=== PATIENT | male | born 1975 | race Caucasian/White ===

== ENCOUNTER 2017-03-11 19:07 | Emergency (ER) | payer OTHER ==
--- NOTE | 2017-03-11 22:54 | ED CLINICAL REPORT ---
Clinical Report - Physicians/Mid Levels Formerly [facility] [address] [place] [address] 03/11/2017 19:07 [id number] Time Seen: 19:22 Mar 11 2017. Arrived- By private vehicle. Historian- patient. HISTORY OF PRESENT ILLNESS This started just prior to arrival and is still present. No loss of appetite. (Patient recently started on Geodon, recently increased medications about 2 days previously, now having spasms and contractions. No history of similar. Patient has not done any illicit drugs. Here with his girlfriend. Denies headache, denies fevers. No prior reactions to Geodon. No other new symptoms. No recent fevers or illness. No recent travel. No hemoptysis. No sick contacts.). REVIEW OF SYSTEMS No fever, sore throat, sinus drainage, abdominal pain or nausea. No skin rash or back pain. All systems otherwise negative, except as recorded above. PAST HISTORY Problems: Hepatitis [Chronic]. Pancreatitis [Chronic]. Substance Abuse. Abdominal Pain. Diarrhea. Vomiting. Dental Pain. Asthma. Back Pain. Anxiety Reaction. PTSD. Medications: Wellbutrin Oral (Tablet 100 mg) 1 tablet, daily. Geodon Oral (Capsule 80 mg), 2x a day. Gabapentin Oral 1600 mg, daily. Allergies: Geodon. Moderate (Extrapyramidal ADR: Muscle Contractions) Vicodin.(vomiting). SOCIAL HISTORY Smoker- current status unknown. No alcohol use or drug use. ADDITIONAL NOTES The nursing notes have been reviewed. PHYSICAL EXAM Vital Signs: 03/11/2017 19:15 BP: 121/91. HR: 119. RR: 20. O2 saturation: 95%. Temp: 99.8 F. Pain level now: 9/10. Appearance: (diaphoretic). ENT: Nose normal. Pharynx normal. Neck: Normal inspection. CVS: Tachycardia. Normal heart rate and rhythm. Heart sounds normal. Respiratory: No respiratory distress. Breath sounds normal. No accessory muscle use or decreased air movement. Extremities: (contractsoins/ spasms off/ on). Neuro: Oriented X 3. LABS, X-RAYS, AND EKG EKG: EKG time: (1934). No acute process. No acute ischemia. Tachycardia (121). Normal QRS complex. Normal axis. Normal ST and T waves and QT. The study has been interpreted contemporaneously. The study has been independently viewed by me. The EKG appears to be a good tracing. Laboratory Tests: CBC w Diff: (DEAN: 03/11/2017 19:17) ( [facility] [place] 03/11/2017 19:49) Final results Test Result Flag Units (Reference) WHITE BLOOD COUNT 10.8 K/uL (4.5-11.5) RED BLOOD COUNT 5.44 M/uL (4.50-5.90) HEMOGLOBIN 16.2 gm/dL (13.5-17.5) HEMATOCRIT 47.7 % (41.0-53.0) MEAN CELL VOLUME 88 fL (80-100) MEAN CORPUSCULAR HGB 30 pg (26-34) MEAN CORPUSCULAR HGB CONC 34 g/dL (31-37) RED CELL DISTRIBUTION WIDTH 12.6 % (11.6-14.8) PLATELET COUNT 207 K/uL (150-400) NEUTROPHIL % 48.8 L % (50-75) LYMPH % 41.6 H % (25-40) MONO % 7.1 % (3-14) EOSINOPHIL % 2.0 % (0-4) BASOPHIL % 0.5 % (0-2) Lactate, Serum: (DEAN: 03/11/2017 21:00) ( MsgRcvd 03/11/2017 22:04) Final results Test Result Flag Units (Reference) LACTIC ACID 1.1 mmol/L (0.4-2.0) Lactate, Serum: (DEAN: 03/11/2017 19:17) ( MsgRcvd 03/11/2017 20:00) Final results Test Result Flag Units (Reference) LACTIC ACID 11.0 H mmol/L (0.4-2.0) CRITICAL RESULTS CALLEDCalled to EMILEE CHARLES,ER 03/11/171999Were 2 patient identifiers used? YWas the result read back? Y [id number]: (DEAN: 03/11/2017 19:17) ( MsgRcvd 03/11/2017 20:13) Final results Test Result Flag Units (Reference) PROCALCITONIN <0.5 ng/mL (0-0.5) PCT Concentration: Interpretation : Risk/option for action PCT <=0.5 ng/mL : Systemic : Low risk forinfection(sepsis): progression to severeis not likely. : systemic infection.Local bacterial : CAUTION-PCT levelsinfection is : below 0.5 ng/mL do notpossible. : exclude an infection,because localizedinfections (withoutsystemic signs) may beassociated with suchlow levels. If PCT ismeasured very earlyafter a bacterialchallenge (usually <6hours), these valuesmay still be low. Inthis case PCT shouldbe re-assessed 6-24hours later. PCT >0.5 and : Systemic infection: Moderate risk for<= 2 ng/mL : (sepsis) is : progression to severepossible, but : systemic infection.other conditions : The patient should beare known to : closely monitoredelevate PCT. : both clinically andby re-assessing PCTwithin 6-24 hours. PCT > 2 ng/mL : Systemic infection: High risk for(sepsis) is likely: progression to severeunless other : systemic infection.causes are known. : PCT >= 10 ng/mL : Important systemic: High likelihood ofinflammatory : severe sepsis orresponse, almost : septic shock.exclusively due to:severe bacterial :sepsis or septic :shock. : Lipase: (DEAN: 03/11/2017 19:17) ( [facility] 03/11/2017 19:43) Final results Test Result Flag Units (Reference) LIPASE 76 U/L (73-393) CHEM 13 PANEL: (DEAN: 03/11/2017 19:17) ( AzgRcvd 03/11/2017 20:10) Final results Test Result Flag Units (Reference) GLUCOSE 100 mg/dL (70-110) BUN 11 mg/dL (7-18) CREATININE 1.8 H mg/dL (0.6-1.3) Estimated GFR 43.99 mL/min Estimated GFR- 53.31 mL/min Note: Persistent reduction over 3 months in eGFR<60 mL/min/1.73 m2 defines CKD. Patients with eGFR values>=60 mL/min/1.73 m2 may also have CKD if evidence ofpersistent proteinuria. Additional information may be foundat www.kidney.org. SODIUM 144 mmol/L (136-145) POTASSIUM 4.2 mmol/L (3.5-5.1) CHLORIDE 103 mmol/L (98-107) CARBON DIOXIDE 21 mmol/L (21-32) CALCIUM 9.9 mg/dL (8.5-10.1) TOTAL PROTEIN 9.4 H g/dL (6.4-8.2) ALBUMIN 4.9 g/dL (3.3-5.0) BILIRUBIN, TOTAL 0.7 mg/dL (0.0-1.0) ALKALINE PHOSPHATASE 110 U/L (46-116) AST (SGOT) 38 H U/L (15-37) ALT (SGPT) 52 U/L (12-78) CPK 405 H U/L (24-260) MAGNESIUM 2.0 mg/dL (1.8-2.4) CK-MB 3.1 ng/mL (0.5-3.2) %CKMB 0.8 % (0.0-4.0) TROPONIN I <0.05 ng/mL (0.00-1.5) TROPONIN REFERENCE RANGE:<0.1 NEGATIVE0.1-1.5 INDETERMINANT>1.5 POSITIVE . PROGRESS AND PROCEDURES Course of Care: Patient during exam and interview is diaphoretic, clenching down on his teeth and mya his arms, than speaking in full coherent sentences, then other episodes of such, lasting 5-15 seconds. Patient's pupils are equal and reactive at the time, no incontinence, this does not appear to be seizure. he was given total of 4 mg IV Ativan, 25 mg IV Benadryl, 2 L of fluid, his initial lactic acid was 11, with a negative for calcitonin, no leukocytosis, mild tachycardia had no other sepsis or SIRS criteria. repeat lactic acid after 2 L of fluid was normal 1.1 Patient is asleep in room discussion in regards to discontinuation use of the Geodon. AAO x 3 prior to d/c ambulatory. NO other signs/ sx. 03/11/2017 23:06 BP: 130/88. HR: 85. RR: 18. O2 saturation: 100%. Pain level now: 0/10. Patient is stable. Physical exam findings are improved. Symptoms better. Patient/family counseled. Disposition: Discharged. CLINICAL IMPRESSION Adverse drug reaction. (GEODON). Mild nontraumatic rhabdomyolysis Adverse Reaction and Medication Side effect: Extra-pyrymidal Symptoms Dehydration Acute Renal Failure. INSTRUCTIONS (STOP and DISCONTINUE GEODON). Warnings: Further evaluation is necessary. Your Current Medications: STOP TAKING THE FOLLOWING MEDICATIONS: Geodon Oral : Capsule 80 mg, 2x a day. CONTINUE TAKING THE FOLLOWING MEDICATIONS: Gabapentin Oral : 1600 mg daily. Wellbutrin Oral : Tablet 100 mg, 1 tablet daily. Prescription Medications: Ativan 1 mg: take 1 orally every 8 hours as needed for anxiety. No refill. Substitution is permissible. (#3) Benztropine mesylate 1 mg: take 1 tablet orally every 12 hours. No refill. (Dispense 3 tabs (first dose am of the 4th)) OTC Medications: Benadryl Allergy 25 mg (available over the counter): take 1 orally every 8 hours for 3 days, as needed. Dispense ten (10). No refill. Substitution is permissible. Follow-up: Follow up with your doctor in two days. (Electronically signed by Shelli Smith P.A.-C 03/12/2017 13:45)
--- NOTE | 2017-03-11 22:54 | ED CLINICAL REPORT ---
Clinical Report - Physicians/Mid Levels [facility] [address] [place] [address] 03/11/2017 19:07 [id number] Time Seen: 19:22 Mar 11 2017. Arrived- By private vehicle. Historian- patient. HISTORY OF PRESENT ILLNESS This started just prior to arrival and is still present. No loss of appetite. (Patient recently started on Geodon, recently increased medications about 2 days previously, now having spasms and contractions. No history of similar. Patient has not done any illicit drugs. Here with his girlfriend. Denies headache, denies fevers. No prior reactions to Geodon. No other new symptoms. No recent fevers or illness. No recent travel. No hemoptysis. No sick contacts.). REVIEW OF SYSTEMS No fever, sore throat, sinus drainage, abdominal pain or nausea. No skin rash or back pain. All systems otherwise negative, except as recorded above. PAST HISTORY Problems: Hepatitis [Chronic]. Pancreatitis [Chronic]. Substance Abuse. Abdominal Pain. Diarrhea. Vomiting. Dental Pain. Asthma. Back Pain. Anxiety Reaction. PTSD. Medications: Wellbutrin Oral (Tablet 100 mg) 1 tablet, daily. Geodon Oral (Capsule 80 mg), 2x a day. Gabapentin Oral 1600 mg, daily. Allergies: Geodon. Moderate (Extrapyramidal ADR: Muscle Contractions) Vicodin.(vomiting). SOCIAL HISTORY Smoker- current status unknown. No alcohol use or drug use. ADDITIONAL NOTES The nursing notes have been reviewed. PHYSICAL EXAM Vital Signs: 03/11/2017 19:15 BP: 121/91. HR: 119. RR: 20. O2 saturation: 95%. Temp: 99.8 F. Pain level now: 9/10. Appearance: (diaphoretic). ENT: Nose normal. Pharynx normal. Neck: Normal inspection. CVS: Tachycardia. Normal heart rate and rhythm. Heart sounds normal. Respiratory: No respiratory distress. Breath sounds normal. No accessory muscle use or decreased air movement. Extremities: (contractsoins/ spasms off/ on). Neuro: Oriented X 3. LABS, X-RAYS, AND EKG EKG: EKG time: (1934). No acute process. No acute ischemia. Tachycardia (121). Normal QRS complex. Normal axis. Normal ST and T waves and QT. The study has been interpreted contemporaneously. The study has been independently viewed by me. The EKG appears to be a good tracing. Laboratory Tests: CBC w Diff: (DEAN: 03/11/2017 19:17) ( [facility] [place] 03/11/2017 19:49) Final results Test Result Flag Units (Reference) WHITE BLOOD COUNT 10.8 K/uL (4.5-11.5) RED BLOOD COUNT 5.44 M/uL (4.50-5.90) HEMOGLOBIN 16.2 gm/dL (13.5-17.5) HEMATOCRIT 47.7 % (41.0-53.0) MEAN CELL VOLUME 88 fL (80-100) MEAN CORPUSCULAR HGB 30 pg (26-34) MEAN CORPUSCULAR HGB CONC 34 g/dL (31-37) RED CELL DISTRIBUTION WIDTH 12.6 % (11.6-14.8) PLATELET COUNT 207 K/uL (150-400) NEUTROPHIL % 48.8 L % (50-75) LYMPH % 41.6 H % (25-40) MONO % 7.1 % (3-14) EOSINOPHIL % 2.0 % (0-4) BASOPHIL % 0.5 % (0-2) Lactate, Serum: (DEAN: 03/11/2017 21:00) ( MsgRcvd 03/11/2017 22:04) Final results Test Result Flag Units (Reference) LACTIC ACID 1.1 mmol/L (0.4-2.0) Lactate, Serum: (DEAN: 03/11/2017 19:17) ( MsgRcvd 03/11/2017 20:00) Final results Test Result Flag Units (Reference) LACTIC ACID 11.0 H mmol/L (0.4-2.0) CRITICAL RESULTS CALLEDCalled to EMILEE CHARLES,ER 03/11/171999Were 2 patient identifiers used? YWas the result read back? Y [id number]: (DEAN: 03/11/2017 19:17) ( MsgRcvd 03/11/2017 20:13) Final results Test Result Flag Units (Reference) PROCALCITONIN <0.5 ng/mL (0-0.5) PCT Concentration: Interpretation : Risk/option for action PCT <=0.5 ng/mL : Systemic : Low risk forinfection(sepsis): progression to severeis not likely. : systemic infection.Local bacterial : CAUTION-PCT levelsinfection is : below 0.5 ng/mL do notpossible. : exclude an infection,because localizedinfections (withoutsystemic signs) may beassociated with suchlow levels. If PCT ismeasured very earlyafter a bacterialchallenge (usually <6hours), these valuesmay still be low. Inthis case PCT shouldbe re-assessed 6-24hours later. PCT >0.5 and : Systemic infection: Moderate risk for<= 2 ng/mL : (sepsis) is : progression to severepossible, but : systemic infection.other conditions : The patient should beare known to : closely monitoredelevate PCT. : both clinically andby re-assessing PCTwithin 6-24 hours. PCT > 2 ng/mL : Systemic infection: High risk for(sepsis) is likely: progression to severeunless other : systemic infection.causes are known. : PCT >= 10 ng/mL : Important systemic: High likelihood ofinflammatory : severe sepsis orresponse, almost : septic shock.exclusively due to:severe bacterial :sepsis or septic :shock. : Lipase: (DEAN: 03/11/2017 19:17) ( [facility] 03/11/2017 19:43) Final results Test Result Flag Units (Reference) LIPASE 76 U/L (73-393) CHEM 13 PANEL: (DEAN: 03/11/2017 19:17) ( MngRcvd 03/11/2017 20:10) Final results Test Result Flag Units (Reference) GLUCOSE 100 mg/dL (70-110) BUN 11 mg/dL (7-18) CREATININE 1.8 H mg/dL (0.6-1.3) Estimated GFR 43.99 mL/min Estimated GFR- 53.31 mL/min Note: Persistent reduction over 3 months in eGFR<60 mL/min/1.73 m2 defines CKD. Patients with eGFR values>=60 mL/min/1.73 m2 may also have CKD if evidence ofpersistent proteinuria. Additional information may be foundat www.kidney.org. SODIUM 144 mmol/L (136-145) POTASSIUM 4.2 mmol/L (3.5-5.1) CHLORIDE 103 mmol/L (98-107) CARBON DIOXIDE 21 mmol/L (21-32) CALCIUM 9.9 mg/dL (8.5-10.1) TOTAL PROTEIN 9.4 H g/dL (6.4-8.2) ALBUMIN 4.9 g/dL (3.3-5.0) BILIRUBIN, TOTAL 0.7 mg/dL (0.0-1.0) ALKALINE PHOSPHATASE 110 U/L (46-116) AST (SGOT) 38 H U/L (15-37) ALT (SGPT) 52 U/L (12-78) CPK 405 H U/L (24-260) MAGNESIUM 2.0 mg/dL (1.8-2.4) CK-MB 3.1 ng/mL (0.5-3.2) %CKMB 0.8 % (0.0-4.0) TROPONIN I <0.05 ng/mL (0.00-1.5) TROPONIN REFERENCE RANGE:<0.1 NEGATIVE0.1-1.5 INDETERMINANT>1.5 POSITIVE . PROGRESS AND PROCEDURES Course of Care: Patient during exam and interview is diaphoretic, clenching down on his teeth and mya his arms, than speaking in full coherent sentences, then other episodes of such, lasting 5-15 seconds. Patient's pupils are equal and reactive at the time, no incontinence, this does not appear to be seizure. he was given total of 4 mg IV Ativan, 25 mg IV Benadryl, 2 L of fluid, his initial lactic acid was 11, with a negative for calcitonin, no leukocytosis, mild tachycardia had no other sepsis or SIRS criteria. repeat lactic acid after 2 L of fluid was normal 1.1 Patient is asleep in room discussion in regards to discontinuation use of the Geodon. AAO x 3 prior to d/c ambulatory. NO other signs/ sx. 03/11/2017 23:06 BP: 130/88. HR: 85. RR: 18. O2 saturation: 100%. Pain level now: 0/10. Patient is stable. Physical exam findings are improved. Symptoms better. Patient/family counseled. Disposition: Discharged. CLINICAL IMPRESSION Adverse drug reaction. (GEODON). Mild nontraumatic rhabdomyolysis Adverse Reaction and Medication Side effect: Extra-pyrymidal Symptoms Dehydration Acute Renal Failure. INSTRUCTIONS (STOP and DISCONTINUE GEODON). Warnings: Further evaluation is necessary. Your Current Medications: STOP TAKING THE FOLLOWING MEDICATIONS: Geodon Oral : Capsule 80 mg, 2x a day. CONTINUE TAKING THE FOLLOWING MEDICATIONS: Gabapentin Oral : 1600 mg daily. Wellbutrin Oral : Tablet 100 mg, 1 tablet daily. Prescription Medications: Ativan 1 mg: take 1 orally every 8 hours as needed for anxiety. No refill. Substitution is permissible. (#3) Benztropine mesylate 1 mg: take 1 tablet orally every 12 hours. No refill. (Dispense 3 tabs (first dose am of the 4th)) OTC Medications: Benadryl Allergy 25 mg (available over the counter): take 1 orally every 8 hours for 3 days, as needed. Dispense ten (10). No refill. Substitution is permissible. Follow-up: Follow up with your doctor in two days. (Electronically signed by Shelli Smith P.A.-C 03/12/2017 13:45)
--- NOTE | 2017-03-11 22:55 | ED NURSING NOTES ---
Clinical Report - Nurses [facility] [address] [place] [address] 03/11/2017 19:07 Patient: DORETHA LAKE TRIAGE Triage time 19:16. Chief Complaint: NECK PAIN (body tremors muscle mya, sweating A&Ox4). --19:23 Giovana Mary R.N. 19:15 03/11/17. BP: 121/91 taken on the left arm, while lying. HR: 119 (regular and tachycardic). RR: 20 (regular, unlabored and normal). O2 saturation: 95% on room air. Temp: 99.8 F (oral). Pain level now: 07/19. --19:23 Giovnaa Mary R.N. Weight: 90.7 kg stated. Height/Length: 75 inches Per Patient. BMI: 25. --19:23 Giovana Mary R.N. Medications Gabapentin Oral 1600 mg, daily. --19:20 Giovana Mary R.N. Geodon Oral (Capsule 80 mg), 2x a day. --19:20 Giovnaa Mary R.N. Wellbutrin Oral (Tablet 100 mg) 1 tablet, daily. --19:21 Giovana Mary R.N. Allergies Vicodin.(vomiting) --19:19 Giovana Mary R.N. History Arrived by private vehicle. Historian: patient. Accompanied by (girlfriend). Primary physician (elizabeth peacock). This is a new problem. Symptoms still present (started at 1600 today). PAST MEDICAL HX: Immunizations: up-to-date. SOCIAL HX: Light tobacco smoker (cigarette)- less than 1/2 a pack per day. No alcohol use or drug use. SELF HARM ASSESSMENT: A self harm assessment was performed. The patient answered "no" to the question "Have you recently felt down, depressed, or hopeless?", "Have you noticed less interest or pleasure in doing things?", "Do you have thoughts of harming or killing yourself?", "Are you here because you tried to hurt yourself?", "Have you ever tried to hurt yourself before today?", "Have you recently had thoughts about harming or killing others?" and "Do you have any dangerous items in your possession?". --19:23 Giovana Mary R.N. PROBLEMS: Hepatitis [Chronic]. Pancreatitis [Chronic]. --19:21 Giovana Mary R.N. Substance Abuse. Abdominal Pain. Diarrhea. Vomiting. Dental Pain. Asthma. Back Pain. Anxiety Reaction. PTSD. --19:21 Giovana Mary R.N. ADDITIONAL SURGERIES: Eye surgery. Hand surgery. --19:21 Giovana Mary R.N. Interventions ID band on patient. --:23 Giovana Mary R.N. PHYSICAL ASSESSMENT To room via wheelchair. GENERAL / NEURO / PSYCH: Alert. Oriented X 4. Appears in no acute distress. HEENT: Pupils equal, round and reactive to light. RESPIRATORY: Respirations not labored. CVS: Normal sinus rhythm noted. Capillary refill less than 2 seconds. SKIN: Skin is warm and dry. --19:25 Giovana Mary R.N. NURSING PROGRESS NOTES 19:03/11/2017 Site #1 started via IV in the left forearm with an 20g angiocath, with aseptic technique and good blood return; one attempt. Blood drawn: rainbow set. Labeled in the presence of the patient and sent to the lab. Saline lock flushed with 10 mL saline. --19:24 Nelson Teague R.N. :03/11/2017 Ativan (LORazepam) IVP 2 mg given over 2 minute(s) via site #1. Allergies verified, confirmed 5 rights and sedative warning given to the patient. IV patency established. IV site checked: no pain, redness, or swelling. IV flushed thoroughly pre- and post-medication administration. IVP given by RN. --19:24 Nelson Teague R.N. Monitoring of patient in place. Finger stick glucose: 90; performed by tech. Patient gowned. Reassurance given. Two patient identifiers checked. Call light placed in reach. Side rails up x 2. Bed placed in lowest position. Brakes of bed on. --19:25 Giovana Mary R.N. Patient ready for evaluation- chart flagged. --19:25 Giovana Mary R.N. 19:31 03/11/2017 Started bag #1 1000 mL IV Fluids IV NS (Saline); bolus of 1000 mL wide open via site #1. Allergies verified and confirmed 5 rights. IV patency established. IV site checked: no pain, redness, or swelling. IV flushed thoroughly pre- and post-medication administration. --19:31 Giovana Mary R.N. 19:38 03/11/2017 Ativan (LORazepam) IVP 2 mg given over 2 minute(s) via site #1. Allergies verified, confirmed 5 rights and sedative warning given to the patient. IV patency established. IV site checked: no pain, redness, or swelling. IV flushed thoroughly pre- and post-medication administration. IVP given by RN. --19:39 Giovana Mary R.N. 19:37 03/11/17. BP: 134/75 taken on the left arm, while lying. HR: 113 (regular and tachycardic). RR: 18. O2 saturation: 96% on room air. Temp: deferred. Pain level now: 07/19. --19:42 Giovana Mary R.N. Reassurance given to the patient and patient's family. --19:42 Giovana Mary R.N. ( pt A&Ox4, continue to have muscle contractions, pt states thinks he has [place] syndrome, continues to talk through spasms,). --19:43 Giovana Mary R.N. EKG time: (1935 PM). EKG was ordered, performed by a tech and shown to the PA. --19:56 Jo Pizarro ( Critical lactate value received from lab and reported to Mook PEARL (ER Provider)). --20:02 Greg Moseley R.N. 20:10 03/11/2017 Benztropine IVP 1 mg given over 2 minute(s) via site #1. Allergies verified, confirmed 5 rights and sedative warning given to the patient. IV patency established. IV site checked: no pain, redness, or swelling. IV flushed thoroughly pre- and post-medication administration. IVP given by RN. --20:15 Greg Moseley R.N. 20:12 03/11/2017 Benadryl (DiphenhydrAMINE HCl) IVP 50 mg given over 2 minute(s) via site #1. Allergies verified, confirmed 5 rights and sedative warning given to the patient. IV patency established. IV site checked: no pain, redness, or swelling. IV flushed thoroughly pre- and post-medication administration. IVP given by RN. --20:14 Greg Moseley R.N. 20:15 03/11/2017 Started bag #1 1000 mL IV Fluids IV NS (Saline); at 1000 mL/hr over 1 hour(s) via site #1. Allergies verified and confirmed 5 rights. IV patency established. IV site checked: no pain, redness, or swelling. IV flushed thoroughly pre- and post-medication administration. Completed per protocol. --20:15 Greg Moseley R.N. 20:15 03/11/17. BP: 142/99 taken on the left arm, while lying. HR: 99 (regular and normal rate). RR: 18. O2 saturation: 93% on room air. Temp: deferred. Pain level now: 5/10. --20:16 Giovana Mary R.N. Two patient identifiers checked. Call light placed in reach. Side rails up x 2. Bed placed in lowest position. Brakes of bed on. --20:16 Giovana Mary R.N. 20:15 03/11/2017 IV Fluids IV NS Discontinued: completed. Total amount infused: 1000 mL. IV patency established. IV site checked: no pain, redness, or swelling. IV flushed thoroughly. --20:49 Greg Moseley R.N. 20:23 03/11/2017 Toradol IVP 30 mg given over 2 minute(s) via site #1. Allergies verified and confirmed 5 rights. IV patency established. IV site checked: no pain, redness, or swelling. IV flushed thoroughly pre- and post-medication administration. IVP given by RN. --20:23 Giovana Mary R.N. 20:49 03/11/2017 IV Fluids IV NS Discontinued: completed. Total amount infused: 1000 mL. IV patency established. IV site checked: no pain, redness, or swelling. IV flushed thoroughly. --20:49 Greg Mosleey R.N. Patient ID band checked for patient name and birthdate: patient confirmed. Instructions provided to collect clean catch urine and patient verbalized understanding. Clean catch urine collected with return of yellow-colored clear urine; sample sent to lab for urinalysis and drug screen. Specimen labeled in the presence of the patient. --22:27 Giovana Mary R.N. Two patient identifiers checked. Call light placed in reach. Side rails up x 2. Bed placed in lowest position. Brakes of bed on. --22:27 Giovana Mary R.N. Reassessment after fluids administered. He reports no complaints. Overall patient status is improved- he states feels better. RESPIRATORY: No respiratory distress. Breath sounds normal. SKIN: Skin is warm and dry. Skin color within normal limits. --22:27 Giovana Mary R.N. DISPOSITION / DISCHARGE 23:10 03/11/2017 Site #1 removed upon discharge. Catheter intact. Manual pressure and bandage applied. --23:10 Giovana Mary R.N. Condition at departure: improved and stable. No learning barriers present. Discharge instructions provided and reviewed with cook supervisor and the patient. Reviewed medication(s) side effects, precautions, dosing and course information. Prescription(s) given to the cook supervisor. Patient and cook supervisor verbalized understanding. Written instructions provided in Cook Islander. The patient was discharged home and accompanied by cook supervisor and girlfriend. He left the Emergency Department ambulatory and via private vehicle. Family member driving. --23:13 Giovana Mary R.N. 23:06 03/11/17. BP: 130/88 taken on the left arm, while sitting. HR: 85 (regular and normal rate). RR: 18 (regular and labored). O2 saturation: 100% on room air. Temp: deferred. Pain level now: 0/10. --23:13 Giovana Mary R.N. Departure time: 2310. --23:13 Giovana Mary R.N. Locked/Released at 03/11/2017 23:14 by Giovana Mary R.N.
--- NOTE | 2017-03-11 22:55 | ED ORDER SUMMARY ---
..... Patient: DORETHA LAKE OrderSheet [facility] VisitID: [id number] [place] [address] 41y, M Registration Date/Time: 03/11/2017 ORDER SHEET Weight: 90.7 kg (stated) Allergies: Vicodin, Geodon GENERAL ORDERS: Cask Maker (Continuous) (19:21 03/11/2017 EKoroleva P.A.-C) (Ack 19:25 CHagerty ER Ethologist) (19:25 CBradburn R.N.) Cardiac Panel Stat (19:21 03/11/2017 EKoroleva P.A.-C) (Ack 19:25 CHagerty ER Ethologist) (19:25 CBradburn R.N.) EKG - ER Stat (19:21 03/11/2017 EKoroleva P.A.-C) (Ack 19:25 CHagerty ER Ethologist) (19:40 CBradburn R.N.) Urine Drug Screen Urgent (19:23 03/11/2017 EKoroleva P.A.-C) (Ack 19:25 CHagerty ER Ethologist) (22:26 CBradburn R.N.) Lipase Urgent (19:23 03/11/2017 EKoroleva P.A.-C) (Ack 19:25 CHagerty ER Ethologist) (19:26 CBradburn R.N.) PCT (Procalcitonin) Urgent (19:36 03/11/2017 EKoroleva P.A.-C) (19:37 CHagerty ER Ethologist) Lactate, Serum Urgent (19:36 03/11/2017 EKoroleva P.A.-C) (Ack 19:37 CHagerty ER Ethologist) (19:57 DDavis R.N.) - (benztropine 1 mg iv) (19:52 03/11/2017 EKoroleva P.A.-C) (Cancelled: Other20:04 EKoroleva P.A.-C) Lactate, Serum Urgent (20:01 03/11/2017 EKoroleva P.A.-C) (Ack 20:03 CHagerty ER Ethologist) (21:13 CHagerty ER Ethologist) MEDICATION ORDERS: - (benztropine 1 mg iv) (20:04 03/11/2017 EKoroleva P.A.-C) (20:15 DDavis R.N.) IV FLUIDS: IV NS : initial bolus 1000 mL (1000 mL/hr), then 1000 mL/hr for X1 (NOW); Jordan (19:20 03/11/2017 EKoroleva P.A.-C) (Ack 19:26 DIONNAradburn R.N.) (19:31 CBradburn R.N.) Ativan IV 2 mg (HIGH ALERT MEDICATION, NOW) (19:21 03/11/2017 EKoroleva P.A.-C) (19:24 Toña R.N.) Ativan IV 2 mg (HIGH ALERT MEDICATION, NOW) (19:36 03/11/2017 EKoroleva P.A.-C) (19:39 CBradburn R.N.) Benadryl IV 50 mg (NOW) (19:51 03/11/2017 EKoroleva P.A.-C) (20:14 DDavis R.N.) Toradol IV 30 mg (NOW) (20:04 03/11/2017 EKoroleva P.A.-C) (Ack 20:21 CBradburn R.N.) (20:23 CBradburn R.N.) ORDER SHEET NOTES: [Electronically signed by Giovana Mary R.N. (23:14 03/11/2017)] [Electronically signed by Shelli Smith P.A.-C (13:45 03/12/2017)] [Electronically locked/signed by Giovana Mary R.N. (23:14 03/11/2017)]
--- NOTE | 2017-03-11 22:55 | ED NURSING NOTES ---
Clinical Report - Nurses [place] [place] [address] 03/11/2017 19:07 Patient: DORETHA LAKE TRIAGE Triage time 19:16. Chief Complaint: NECK PAIN (body tremors muscle mya, sweating A&Ox4). --19:23 Giovana Mary R.N. 19:15 03/11/17. BP: 121/91 taken on the left arm, while lying. HR: 119 (regular and tachycardic). RR: 20 (regular, unlabored and normal). O2 saturation: 95% on room air. Temp: 99.8 F (oral). Pain level now: 07/19. --19:23 Giovana Mary R.N. Weight: 90.7 kg stated. Height/Length: 75 inches Per Patient. BMI: 25. --19:23 Giovana Mary R.N. Medications Gabapentin Oral 1600 mg, daily. --19:20 Giovana Mary R.N. Geodon Oral (Capsule 80 mg), 2x a day. --19:20 Giovana Mary R.N. Wellbutrin Oral (Tablet 100 mg) 1 tablet, daily. --19:21 Giovana Mary R.N. Allergies Vicodin.(vomiting) --19:19 Giovana Mary R.N. History Arrived by private vehicle. Historian: patient. Accompanied by (girlfriend). Primary physician (elizabeth peacock). This is a new problem. Symptoms still present (started at 1600 today). PAST MEDICAL HX: Immunizations: up-to-date. SOCIAL HX: Light tobacco smoker (cigarette)- less than 1/2 a pack per day. No alcohol use or drug use. SELF HARM ASSESSMENT: A self harm assessment was performed. The patient answered "no" to the question "Have you recently felt down, depressed, or hopeless?", "Have you noticed less interest or pleasure in doing things?", "Do you have thoughts of harming or killing yourself?", "Are you here because you tried to hurt yourself?", "Have you ever tried to hurt yourself before today?", "Have you recently had thoughts about harming or killing others?" and "Do you have any dangerous items in your possession?". --19:23 Giovana Mary R.N. PROBLEMS: Hepatitis [Chronic]. Pancreatitis [Chronic]. --19:21 Giovana Mary R.N. Substance Abuse. Abdominal Pain. Diarrhea. Vomiting. Dental Pain. Asthma. Back Pain. Anxiety Reaction. PTSD. --19:21 Giovana Mary R.N. ADDITIONAL SURGERIES: Eye surgery. Hand surgery. --19:21 Giovana Mary R.N. Interventions ID band on patient. --:23 Giovana Mary R.N. PHYSICAL ASSESSMENT To room via wheelchair. GENERAL / NEURO / PSYCH: Alert. Oriented X 4. Appears in no acute distress. HEENT: Pupils equal, round and reactive to light. RESPIRATORY: Respirations not labored. CVS: Normal sinus rhythm noted. Capillary refill less than 2 seconds. SKIN: Skin is warm and dry. --19:25 Giovana Mary R.N. NURSING PROGRESS NOTES 19:03/11/2017 Site #1 started via IV in the left forearm with an 20g angiocath, with aseptic technique and good blood return; one attempt. Blood drawn: rainbow set. Labeled in the presence of the patient and sent to the lab. Saline lock flushed with 10 mL saline. --19:24 Nelson Teague R.N. :03/11/2017 Ativan (LORazepam) IVP 2 mg given over 2 minute(s) via site #1. Allergies verified, confirmed 5 rights and sedative warning given to the patient. IV patency established. IV site checked: no pain, redness, or swelling. IV flushed thoroughly pre- and post-medication administration. IVP given by RN. --19:24 Nelson Teague R.N. Monitoring of patient in place. Finger stick glucose: 90; performed by tech. Patient gowned. Reassurance given. Two patient identifiers checked. Call light placed in reach. Side rails up x 2. Bed placed in lowest position. Brakes of bed on. --19:25 Giovana Mary R.N. Patient ready for evaluation- chart flagged. --19:25 Giovana Mary R.N. 19:31 03/11/2017 Started bag #1 1000 mL IV Fluids IV NS (Saline); bolus of 1000 mL wide open via site #1. Allergies verified and confirmed 5 rights. IV patency established. IV site checked: no pain, redness, or swelling. IV flushed thoroughly pre- and post-medication administration. --19:31 Giovana Mary R.N. 19:38 03/11/2017 Ativan (LORazepam) IVP 2 mg given over 2 minute(s) via site #1. Allergies verified, confirmed 5 rights and sedative warning given to the patient. IV patency established. IV site checked: no pain, redness, or swelling. IV flushed thoroughly pre- and post-medication administration. IVP given by RN. --19:39 Giovana Mary R.N. 19:37 03/11/17. BP: 134/75 taken on the left arm, while lying. HR: 113 (regular and tachycardic). RR: 18. O2 saturation: 96% on room air. Temp: deferred. Pain level now: 07/19. --19:42 Giovana Mary R.N. Reassurance given to the patient and patient's family. --19:42 Giovana Mary R.N. ( pt A&Ox4, continue to have muscle contractions, pt states thinks he has [place] syndrome, continues to talk through spasms,). --19:43 Giovana Mary R.N. EKG time: (1935 PM). EKG was ordered, performed by a tech and shown to the PA. --19:56 Jo Pizarro ( Critical lactate value received from lab and reported to Mook PEARL (ER Provider)). --20:02 Greg Moseley R.N. 20:10 03/11/2017 Benztropine IVP 1 mg given over 2 minute(s) via site #1. Allergies verified, confirmed 5 rights and sedative warning given to the patient. IV patency established. IV site checked: no pain, redness, or swelling. IV flushed thoroughly pre- and post-medication administration. IVP given by RN. --20:15 Greg Moseley R.N. 20:12 03/11/2017 Benadryl (DiphenhydrAMINE HCl) IVP 50 mg given over 2 minute(s) via site #1. Allergies verified, confirmed 5 rights and sedative warning given to the patient. IV patency established. IV site checked: no pain, redness, or swelling. IV flushed thoroughly pre- and post-medication administration. IVP given by RN. --20:14 Greg Moseley R.N. 20:15 03/11/2017 Started bag #1 1000 mL IV Fluids IV NS (Saline); at 1000 mL/hr over 1 hour(s) via site #1. Allergies verified and confirmed 5 rights. IV patency established. IV site checked: no pain, redness, or swelling. IV flushed thoroughly pre- and post-medication administration. Completed per protocol. --20:15 Greg Moseley R.N. 20:15 03/11/17. BP: 142/99 taken on the left arm, while lying. HR: 99 (regular and normal rate). RR: 18. O2 saturation: 93% on room air. Temp: deferred. Pain level now: 5/10. --20:16 Giovana Mary R.N. Two patient identifiers checked. Call light placed in reach. Side rails up x 2. Bed placed in lowest position. Brakes of bed on. --20:16 Giovana Mary R.N. 20:15 03/11/2017 IV Fluids IV NS Discontinued: completed. Total amount infused: 1000 mL. IV patency established. IV site checked: no pain, redness, or swelling. IV flushed thoroughly. --20:49 Greg Moseley R.N. 20:23 03/11/2017 Toradol IVP 30 mg given over 2 minute(s) via site #1. Allergies verified and confirmed 5 rights. IV patency established. IV site checked: no pain, redness, or swelling. IV flushed thoroughly pre- and post-medication administration. IVP given by RN. --20:23 Giovana Mary R.N. 20:49 03/11/2017 IV Fluids IV NS Discontinued: completed. Total amount infused: 1000 mL. IV patency established. IV site checked: no pain, redness, or swelling. IV flushed thoroughly. --20:49 Greg Moseley R.N. Patient ID band checked for patient name and birthdate: patient confirmed. Instructions provided to collect clean catch urine and patient verbalized understanding. Clean catch urine collected with return of yellow-colored clear urine; sample sent to lab for urinalysis and drug screen. Specimen labeled in the presence of the patient. --22:27 Giovana Mary R.N. Two patient identifiers checked. Call light placed in reach. Side rails up x 2. Bed placed in lowest position. Brakes of bed on. --22:27 Giovana Mary R.N. Reassessment after fluids administered. He reports no complaints. Overall patient status is improved- he states feels better. RESPIRATORY: No respiratory distress. Breath sounds normal. SKIN: Skin is warm and dry. Skin color within normal limits. --22:27 Giovana Mary R.N. DISPOSITION / DISCHARGE 23:10 03/11/2017 Site #1 removed upon discharge. Catheter intact. Manual pressure and bandage applied. --23:10 Giovana Mary R.N. Condition at departure: improved and stable. No learning barriers present. Discharge instructions provided and reviewed with diabetes clinical manager and the patient. Reviewed medication(s) side effects, precautions, dosing and course information. Prescription(s) given to the diabetes clinical manager. Patient and diabetes clinical manager verbalized understanding. Written instructions provided in Indonesian. The patient was discharged home and accompanied by diabetes clinical manager and girlfriend. He left the Emergency Department ambulatory and via private vehicle. Family member driving. --23:13 Giovana Mary R.N. 23:06 03/11/17. BP: 130/88 taken on the left arm, while sitting. HR: 85 (regular and normal rate). RR: 18 (regular and labored). O2 saturation: 100% on room air. Temp: deferred. Pain level now: 0/10. --23:13 Giovana Mary R.N. Departure time: 2310. --23:13 Giovana Mary R.N. Locked/Released at 03/11/2017 23:14 by Giovana Mary R.N.
--- NOTE | 2017-03-11 22:55 | ED ORDER SUMMARY ---
..... Patient: DORETHA LAKE OrderSheet [facility] VisitID: [id number] [place] [address] 41y, M Registration Date/Time: 03/11/2017 ORDER SHEET Weight: 90.7 kg (stated) Allergies: Vicodin, Geodon GENERAL ORDERS: Livestock [employer] Hand (Continuous) (19:21 03/11/2017 EKoroleva P.A.-C) (Ack 19:25 CHagerty ER Conference Services Director) (19:25 CBradburn R.N.) Cardiac Panel Stat (19:21 03/11/2017 EKoroleva P.A.-C) (Ack 19:25 CHagerty ER Conference Services Director) (19:25 CBradburn R.N.) EKG - ER Stat (19:21 03/11/2017 EKoroleva P.A.-C) (Ack 19:25 CHagerty ER Conference Services Director) (19:40 CBradburn R.N.) Urine Drug Screen Urgent (19:23 03/11/2017 EKoroleva P.A.-C) (Ack 19:25 CHagerty ER Conference Services Director) (22:26 CBradburn R.N.) Lipase Urgent (19:23 03/11/2017 EKoroleva P.A.-C) (Ack 19:25 CHagerty ER Conference Services Director) (19:26 CBradburn R.N.) PCT (Procalcitonin) Urgent (19:36 03/11/2017 EKoroleva P.A.-C) (19:37 CHagerty ER Conference Services Director) Lactate, Serum Urgent (19:36 03/11/2017 EKoroleva P.A.-C) (Ack 19:37 CHagerty ER Conference Services Director) (19:57 DDavis R.N.) - (benztropine 1 mg iv) (19:52 03/11/2017 EKoroleva P.A.-C) (Cancelled: Other20:04 EKoroleva P.A.-C) Lactate, Serum Urgent (20:01 03/11/2017 EKoroleva P.A.-C) (Ack 20:03 CHagerty ER Conference Services Director) (21:13 CHagerty ER Conference Services Director) MEDICATION ORDERS: - (benztropine 1 mg iv) (20:04 03/11/2017 EKoroleva P.A.-C) (20:15 DDavis R.N.) IV FLUIDS: IV NS : initial bolus 1000 mL (1000 mL/hr), then 1000 mL/hr for X1 (NOW); Jordan (19:20 03/11/2017 EKoroleva P.A.-C) (Ack 19:26 DIONNAradburn R.N.) (19:31 CBradburn R.N.) Ativan IV 2 mg (HIGH ALERT MEDICATION, NOW) (19:21 03/11/2017 EKoroleva P.A.-C) (19:24 Toña R.N.) Ativan IV 2 mg (HIGH ALERT MEDICATION, NOW) (19:36 03/11/2017 EKoroleva P.A.-C) (19:39 CBradburn R.N.) Benadryl IV 50 mg (NOW) (19:51 03/11/2017 EKoroleva P.A.-C) (20:14 DDavis R.N.) Toradol IV 30 mg (NOW) (20:04 03/11/2017 EKoroleva P.A.-C) (Ack 20:21 CBradburn R.N.) (20:23 CBradburn R.N.) ORDER SHEET NOTES: [Electronically signed by Giovana Mary R.N. (23:14 03/11/2017)] [Electronically signed by Shelli Smith P.A.-C (13:45 03/12/2017)] [Electronically locked/signed by Giovana Mary R.N. (23:14 03/11/2017)]
--- NOTE | 2017-03-12 13:46 | ED MAR SUMMARY ---
..... Medication Administration Record [facility] [address] [place] [address] Patient: DORETHA LAKE Visit ID: [id number] 41y, M Weight: 90.7 kg Height/Length: 75 in BMI: 25 ALLERGIES: Vicodin, Geodon Given 19:22 03/11/2017 Nelson Teague R.N. Medication Administered: ATIVAN [IVP] (LORAZEPAM), Dose: 2 mg IVP over 2 minute(s), Site: #1 left forearm. Medication Ordered: Ativan IV 2 mg (HIGH ALERT MEDICATION, NOW). Start 19:31 03/11/2017 Giovana Mary R.N., Stop 20:15 03/11/2017 Greg Moseley R.N. Medication Administered: IV NS (SALINE), Dose: IV Fluids, Bolus: 1000 mL wide open, Dispensed: 1000 mL bag, Site: #1 left forearm. Medication Ordered: IV NS : initial bolus 1000 mL (1000 mL/hr), then 1000 mL/hr for X1 (NOW); Jordan. Given 19:38 03/11/2017 Giovana Mary R.N. Medication Administered: ATIVAN [IVP] (LORAZEPAM), Dose: 2 mg IVP over 2 minute(s), Site: #1 left forearm. Medication Ordered: Ativan IV 2 mg (HIGH ALERT MEDICATION, NOW). Given 20:10 03/11/2017 Greg Moseley R.N. Medication Administered: BENZTROPINE [IVP], Dose: 1 mg IVP over 2 minute(s), Site: #1 left forearm. Medication Ordered: - (benztropine 1 mg iv). Given 20:12 03/11/2017 Greg Moseley R.N. Medication Administered: BENADRYL [IVP] (DIPHENHYDRAMINE HCL), Dose: 50 mg IVP over 2 minute(s), Site: #1 left forearm. Medication Ordered: Benadryl IV 50 mg (NOW). Start 20:15 03/11/2017 Greg Moseley R.N., Stop 20:49 03/11/2017 Greg Moseley R.N. Medication Administered: IV NS (SALINE), Dose: IV Fluids over 1 hour(s), Rate: 1000 mL/hr, Dispensed: 1000 mL bag, Site: #1 left forearm. Medication Ordered: IV NS : initial bolus 1000 mL (1000 mL/hr), then 1000 mL/hr for X1 (NOW); Jordan. Given 20:23 03/11/2017 Giovana Mary R.N. Medication Administered: TORADOL [IVP], Dose: 30 mg IVP over 2 minute(s), Site: #1 left forearm. Medication Ordered: Toradol IV 30 mg (NOW).
--- NOTE | 2017-03-12 13:46 | ED DISCHARGE INSTRUCTIONS ---
Patient: DORETHA LAKE General Instructions [facility] VisitID: [id number] [place] [address] 41y, M Registration Date/Time: 03/11/2017 Adverse drug reaction. (GEODON). Mild nontraumatic rhabdomyolysis Adverse Reaction and Medication Side effect: Extra-pyrymidal Symptoms Dehydration Acute Renal Failure. INSTRUCTIONS (STOP and DISCONTINUE GEODON). Warnings: Further evaluation is necessary. Your Current Medications: STOP TAKING THE FOLLOWING MEDICATIONS: Geodon Oral : Capsule 80 mg, 2x a day. CONTINUE TAKING THE FOLLOWING MEDICATIONS: Gabapentin Oral : 1600 mg daily. Wellbutrin Oral : Tablet 100 mg, 1 tablet daily. Prescription Medications: Ativan 1 mg: take 1 orally every 8 hours as needed for anxiety. No refill. Substitution is permissible. (#3) Benztropine mesylate 1 mg: take 1 tablet orally every 12 hours. No refill. (Dispense 3 tabs (first dose am of the 4th)) OTC Medications: Benadryl Allergy 25 mg (available over the counter): take 1 orally every 8 hours for 3 days, as needed. Dispense ten (10). No refill. Substitution is permissible. Follow-up: Follow up with your doctor in two days. ADDITIONAL INFORMATION Rhabdomyolysis Rhabdomyolysis (RM) is the breakdown of muscle tissue. When this occurs there is a release of toxic substances into the blood stream. The most common cause for this condition is injury to the muscle from trauma. The trauma may be due to a blunt injury (car and bike accidents, falls), electrical shock or medel. Lying in one position for a long time (for example, unconscious from a drug or alcohol overdose), strenuous exertion (such as running a marathon), seizures and use of certain prescribed and recreational drugs can also cause RM. Severe RM can be fatal. It can cause fatal changes in body function including: Kidney failure Abnormalheart rhythm that can be fatal Excess bleeding due to changes in the bloods ability to form a clot Severe RM is a medical emergency and is treated in the hospital with large amounts of IV fluids to flush the toxins out of the body. Mild cases of RM may be treated in the emergency department and followed closely with a repeat exam and blood tests the next day. Home Care Rest for the next 24 hours. Avoid any strenuous activity. Drink extra fluids to stay well hydrated and to continue flushing toxins out of your system. Unless told otherwise, drink 3 quarts of clear fluids over the next 24 hours. You may use acetaminophen (Tylenol) or ibuprofen (Motrin, Advil) to control pain, unless another medicine was prescribed. [NOTE: If you have chronic liver or kidney disease or ever had a stomach ulcer or GI bleeding, talk with your doctor before using these medicines.] Follow Up with this facility, your doctor or as advised by our staff. Get Prompt Medical Attention if any of the following occur: Palpitations (rapid or irregular heartbeat) Dizziness, weakness or fainting Tea- or cola-colored urine or decreased urination Swelling, pain or numbness in the arm or leg muscles Lorazepam Oral tablet What is this medicine? LORAZEPAM (farhat A ze facundo) is a benzodiazepine. It is used to treat anxiety. How should I use this medicine? Take this medicine by mouth with a glass of water. Follow the directions on the prescription label. If it upsets your stomach, take it with food or milk. Take your medicine at regular intervals. Do not take it more often than directed. Do not stop taking except on the advice of your doctor or health manager progressive care. Talk to your animal stunner regarding the use of this medicine in children. Special care may be needed. What side effects may I notice from receiving this medicine? Side effects that you should report to your doctor or health manager progressive care as soon as possible: changes in vision confusion depression mood changes, excitability or aggressive behavior movement difficulty, staggering or jerky movements muscle cramps restlessness weakness or tiredness Side effects that usually do not require medical attention (report to your doctor or health manager progressive care if they continue or are bothersome): constipation or diarrhea difficulty sleeping, nightmares dizziness, drowsiness headache nausea, vomiting What may interact with this medicine? barbiturate medicines for inducing sleep or treating seizures, like phenobarbital clozapine medicines for depression, mental problems or psychiatric disturbances medicines for sleep phenytoin probenecid theophylline valproic acid What if I miss a dose? If you miss a dose, take it as soon as you can. If it is almost time for your next dose, take only that dose. Do not take double or extra doses. Where should I keep my medicine? Keep out of the reach of children. This medicine can be abused. Keep your medicine in a safe place to protect it from theft. Do not share this medicine with anyone. Selling or giving away this medicine is dangerous and against the law. Store at room temperature between 20 and 25 degrees C (68 and 77 degrees F). Protect from light. Keep container tightly closed. Throw away any unused medicine after the expiration date. What should I tell my health care provider before I take this medicine? They need to know if you have any of these conditions: alcohol or drug abuse problem bipolar disorder, depression, psychosis or other mental health condition glaucoma kidney or liver disease lung disease or breathing difficulties myasthenia gravis Parkinson's disease seizures or a history of seizures suicidal thoughts an unusual or allergic reaction to lorazepam, other benzodiazepines, foods, dyes, or preservatives or trying to get breast-feeding What should I watch for while using this medicine? Visit your doctor or health manager progressive care for regular checks on your progress. Your body may become dependent on this medicine, ask your doctor or health manager progressive care if you still need to take it. However, if you have been taking this medicine regularly for some time, do not suddenly stop taking it. You must gradually reduce the dose or you may get severe side effects. Ask your doctor or health manager progressive care for advice before increasing or decreasing the dose. Even after you stop taking this medicine it can still affect your body for several days. You may get drowsy or dizzy. Do not drive, use machinery, or do anything that needs mental alertness until you know how this medicine affects you. To reduce the risk of dizzy and fainting spells, do not stand or sit up quickly, especially if you are an older patient. Alcohol may increase dizziness and drowsiness. Avoid alcoholic drinks. Do not treat yourself for coughs, colds or allergies without asking your doctor or health manager progressive care for advice. Some ingredients can increase possible side effects. You have been given the following additional information: Rhabdomyolysis Lorazepam Oral tablet (Electronically signed by Shelli Smith P.A.-C 03/12/2017 13:45)
--- NOTE | 2017-03-12 13:46 | ED DISCHARGE INSTRUCTIONS ---
Patient: DORETHA LAKE General Instructions [facility] VisitID: [id number] [place] [address] 41y, M Registration Date/Time: 03/11/2017 Adverse drug reaction. (GEODON). Mild nontraumatic rhabdomyolysis Adverse Reaction and Medication Side effect: Extra-pyrymidal Symptoms Dehydration Acute Renal Failure. INSTRUCTIONS (STOP and DISCONTINUE GEODON). Warnings: Further evaluation is necessary. Your Current Medications: STOP TAKING THE FOLLOWING MEDICATIONS: Geodon Oral : Capsule 80 mg, 2x a day. CONTINUE TAKING THE FOLLOWING MEDICATIONS: Gabapentin Oral : 1600 mg daily. Wellbutrin Oral : Tablet 100 mg, 1 tablet daily. Prescription Medications: Ativan 1 mg: take 1 orally every 8 hours as needed for anxiety. No refill. Substitution is permissible. (#3) Benztropine mesylate 1 mg: take 1 tablet orally every 12 hours. No refill. (Dispense 3 tabs (first dose am of the 4th)) OTC Medications: Benadryl Allergy 25 mg (available over the counter): take 1 orally every 8 hours for 3 days, as needed. Dispense ten (10). No refill. Substitution is permissible. Follow-up: Follow up with your doctor in two days. ADDITIONAL INFORMATION Rhabdomyolysis Rhabdomyolysis (RM) is the breakdown of muscle tissue. When this occurs there is a release of toxic substances into the blood stream. The most common cause for this condition is injury to the muscle from trauma. The trauma may be due to a blunt injury (car and bike accidents, falls), electrical shock or medel. Lying in one position for a long time (for example, unconscious from a drug or alcohol overdose), strenuous exertion (such as running a marathon), seizures and use of certain prescribed and recreational drugs can also cause RM. Severe RM can be fatal. It can cause fatal changes in body function including: Kidney failure Abnormalheart rhythm that can be fatal Excess bleeding due to changes in the bloods ability to form a clot Severe RM is a medical emergency and is treated in the hospital with large amounts of IV fluids to flush the toxins out of the body. Mild cases of RM may be treated in the emergency department and followed closely with a repeat exam and blood tests the next day. Home Care Rest for the next 24 hours. Avoid any strenuous activity. Drink extra fluids to stay well hydrated and to continue flushing toxins out of your system. Unless told otherwise, drink 3 quarts of clear fluids over the next 24 hours. You may use acetaminophen (Tylenol) or ibuprofen (Motrin, Advil) to control pain, unless another medicine was prescribed. [NOTE: If you have chronic liver or kidney disease or ever had a stomach ulcer or GI bleeding, talk with your doctor before using these medicines.] Follow Up with this facility, your doctor or as advised by our staff. Get Prompt Medical Attention if any of the following occur: Palpitations (rapid or irregular heartbeat) Dizziness, weakness or fainting Tea- or cola-colored urine or decreased urination Swelling, pain or numbness in the arm or leg muscles Lorazepam Oral tablet What is this medicine? LORAZEPAM (farhat A ze facundo) is a benzodiazepine. It is used to treat anxiety. How should I use this medicine? Take this medicine by mouth with a glass of water. Follow the directions on the prescription label. If it upsets your stomach, take it with food or milk. Take your medicine at regular intervals. Do not take it more often than directed. Do not stop taking except on the advice of your doctor or health emergency care attendant. Talk to your supervisor production regarding the use of this medicine in children. Special care may be needed. What side effects may I notice from receiving this medicine? Side effects that you should report to your doctor or health emergency care attendant as soon as possible: changes in vision confusion depression mood changes, excitability or aggressive behavior movement difficulty, staggering or jerky movements muscle cramps restlessness weakness or tiredness Side effects that usually do not require medical attention (report to your doctor or health emergency care attendant if they continue or are bothersome): constipation or diarrhea difficulty sleeping, nightmares dizziness, drowsiness headache nausea, vomiting What may interact with this medicine? barbiturate medicines for inducing sleep or treating seizures, like phenobarbital clozapine medicines for depression, mental problems or psychiatric disturbances medicines for sleep phenytoin probenecid theophylline valproic acid What if I miss a dose? If you miss a dose, take it as soon as you can. If it is almost time for your next dose, take only that dose. Do not take double or extra doses. Where should I keep my medicine? Keep out of the reach of children. This medicine can be abused. Keep your medicine in a safe place to protect it from theft. Do not share this medicine with anyone. Selling or giving away this medicine is dangerous and against the law. Store at room temperature between 20 and 25 degrees C (68 and 77 degrees F). Protect from light. Keep container tightly closed. Throw away any unused medicine after the expiration date. What should I tell my health care provider before I take this medicine? They need to know if you have any of these conditions: alcohol or drug abuse problem bipolar disorder, depression, psychosis or other mental health condition glaucoma kidney or liver disease lung disease or breathing difficulties myasthenia gravis Parkinson's disease seizures or a history of seizures suicidal thoughts an unusual or allergic reaction to lorazepam, other benzodiazepines, foods, dyes, or preservatives or trying to get breast-feeding What should I watch for while using this medicine? Visit your doctor or health emergency care attendant for regular checks on your progress. Your body may become dependent on this medicine, ask your doctor or health emergency care attendant if you still need to take it. However, if you have been taking this medicine regularly for some time, do not suddenly stop taking it. You must gradually reduce the dose or you may get severe side effects. Ask your doctor or health emergency care attendant for advice before increasing or decreasing the dose. Even after you stop taking this medicine it can still affect your body for several days. You may get drowsy or dizzy. Do not drive, use machinery, or do anything that needs mental alertness until you know how this medicine affects you. To reduce the risk of dizzy and fainting spells, do not stand or sit up quickly, especially if you are an older patient. Alcohol may increase dizziness and drowsiness. Avoid alcoholic drinks. Do not treat yourself for coughs, colds or allergies without asking your doctor or health emergency care attendant for advice. Some ingredients can increase possible side effects. You have been given the following additional information: Rhabdomyolysis Lorazepam Oral tablet (Electronically signed by Shelli Smith P.A.-C 03/12/2017 13:45)
--- NOTE | 2017-03-12 13:46 | ED MED RECONCILIATION SUMMARY ---
Patient: DORETHA LAKE Medication Reconciliation Report [facility] VisitID: [id number] [place] [address] 41y, M Registration Date/Time: 03/11/2017 Weight: 90.7 kg Height/Length: 75 in. BMI: 25.0 ALLERGIES: Geodon, Vicodin The patient's Home Medications are listed below: STOP TAKING THE FOLLOWING MEDICATIONS: Geodon Oral (80 mg), 2x a day CONTINUE TAKING THE FOLLOWING MEDICATIONS: Gabapentin Oral 1600 mg, daily Wellbutrin Oral (100 mg) 1 tablet, daily The source(s) of the original Home Medication information: Not obtained. The following Medications were given to the patient in the Emergency Department: Ativan [IVP] IVP 2 mg, administered: 03/11/2017 7:22:00 PM IV NS IV Fluids bolus 1000 mL wide open, administered: 03/11/2017 7:31:00 PM Ativan [IVP] IVP 2 mg, administered: 03/11/2017 7:38:00 PM Benadryl [IVP] IVP 50 mg, administered: 03/11/2017 8:12:00 PM Benztropine [IVP] IVP 1 mg, administered: 03/11/2017 8:10:00 PM IV NS IV Fluids bolus 0, then 1000 mL/hr, administered: 03/11/2017 8:15:00 PM Toradol [IVP] IVP 30 mg, administered: 03/11/2017 8:23:00 PM The following Medications were prescribed to the patient: Ativan 1 mg: take 1 orally every 8 hours as needed for anxiety. No refill. Substitution is permissible.(#3) -- Shelli Smith, P.A.-C Benadryl Allergy 25 mg (available over the counter): take 1 orally every 8 hours for 3 days, as needed. Dispense ten (10). No refill. Substitution is permissible. -- Shelli Smith, P.A.-C Benztropine mesylate 1 mg: take 1 tablet orally every 12 hours. No refill.(Dispense 3 tabs (first dose am of the 4th)) -- Shelli Smith, P.A.-C
--- NOTE | 2017-03-12 13:46 | ED MED RECONCILIATION SUMMARY ---
Patient: DORETHA LAKE Medication Reconciliation Report [facility] VisitID: [id number] [place] [address] 41y, M Registration Date/Time: 03/11/2017 Weight: 90.7 kg Height/Length: 75 in. BMI: 25.0 ALLERGIES: Geodon, Vicodin The patient's Home Medications are listed below: STOP TAKING THE FOLLOWING MEDICATIONS: Geodon Oral (80 mg), 2x a day CONTINUE TAKING THE FOLLOWING MEDICATIONS: Gabapentin Oral 1600 mg, daily Wellbutrin Oral (100 mg) 1 tablet, daily The source(s) of the original Home Medication information: Not obtained. The following Medications were given to the patient in the Emergency Department: Ativan [IVP] IVP 2 mg, administered: 03/11/2017 7:22:00 PM IV NS IV Fluids bolus 1000 mL wide open, administered: 03/11/2017 7:31:00 PM Ativan [IVP] IVP 2 mg, administered: 03/11/2017 7:38:00 PM Benadryl [IVP] IVP 50 mg, administered: 03/11/2017 8:12:00 PM Benztropine [IVP] IVP 1 mg, administered: 03/11/2017 8:10:00 PM IV NS IV Fluids bolus 0, then 1000 mL/hr, administered: 03/11/2017 8:15:00 PM Toradol [IVP] IVP 30 mg, administered: 03/11/2017 8:23:00 PM The following Medications were prescribed to the patient: Ativan 1 mg: take 1 orally every 8 hours as needed for anxiety. No refill. Substitution is permissible.(#3) -- Shelil Smith, P.A.-C Benadryl Allergy 25 mg (available over the counter): take 1 orally every 8 hours for 3 days, as needed. Dispense ten (10). No refill. Substitution is permissible. -- Shelli Smith, P.A.-C Benztropine mesylate 1 mg: take 1 tablet orally every 12 hours. No refill.(Dispense 3 tabs (first dose am of the 4th)) -- Shelli Smith, P.A.-C
--- NOTE | 2017-03-12 13:46 | ED MAR SUMMARY ---
..... Medication Administration Record [facility] [address] [place] [address] Patient: DORETHA LAKE Visit ID: [id number] 41y, M Weight: 90.7 kg Height/Length: 75 in BMI: 25 ALLERGIES: Vicodin, Geodon Given 19:22 03/11/2017 Nelson Teageu R.N. Medication Administered: ATIVAN [IVP] (LORAZEPAM), Dose: 2 mg IVP over 2 minute(s), Site: #1 left forearm. Medication Ordered: Ativan IV 2 mg (HIGH ALERT MEDICATION, NOW). Start 19:31 03/11/2017 Giovana Mary R.N., Stop 20:15 03/11/2017 Greg Moseley R.N. Medication Administered: IV NS (SALINE), Dose: IV Fluids, Bolus: 1000 mL wide open, Dispensed: 1000 mL bag, Site: #1 left forearm. Medication Ordered: IV NS : initial bolus 1000 mL (1000 mL/hr), then 1000 mL/hr for X1 (NOW); Jordan. Given 19:38 03/11/2017 Giovana Mary R.N. Medication Administered: ATIVAN [IVP] (LORAZEPAM), Dose: 2 mg IVP over 2 minute(s), Site: #1 left forearm. Medication Ordered: Ativan IV 2 mg (HIGH ALERT MEDICATION, NOW). Given 20:10 03/11/2017 Greg Moseley R.N. Medication Administered: BENZTROPINE [IVP], Dose: 1 mg IVP over 2 minute(s), Site: #1 left forearm. Medication Ordered: - (benztropine 1 mg iv). Given 20:12 03/11/2017 Greg Moseley R.N. Medication Administered: BENADRYL [IVP] (DIPHENHYDRAMINE HCL), Dose: 50 mg IVP over 2 minute(s), Site: #1 left forearm. Medication Ordered: Benadryl IV 50 mg (NOW). Start 20:15 03/11/2017 Greg Moseley R.N., Stop 20:49 03/11/2017 Greg Moseley R.N. Medication Administered: IV NS (SALINE), Dose: IV Fluids over 1 hour(s), Rate: 1000 mL/hr, Dispensed: 1000 mL bag, Site: #1 left forearm. Medication Ordered: IV NS : initial bolus 1000 mL (1000 mL/hr), then 1000 mL/hr for X1 (NOW); Jordan. Given 20:23 03/11/2017 Giovana Mary R.N. Medication Administered: TORADOL [IVP], Dose: 30 mg IVP over 2 minute(s), Site: #1 left forearm. Medication Ordered: Toradol IV 30 mg (NOW).
== END 2017-03-11 23:13 | disposition home or self-care (01) ==
LOC: ED SRH 19:07
DX: T43.595A Adverse effect of other antipsychotics and neuroleptics, initial encounter (principal); M62.82 Rhabdomyolysis; E86.0 Dehydration; N17.9 Acute kidney failure, unspecified; X58.XXXA Exposure to other specified factors, initial encounter; Y93.89 Activity, other specified; Y99.8 Other external cause status; Y92.9 Unspecified place or not applicable; F43.10 Post-traumatic stress disorder, unspecified; Z79.899 Other long term (current) drug therapy
CPT/HCPCS: 90098; 90100; 90616; 90617; 92031; 92235; 92610; 92720; 92760; 92761; 92762; 92763; 92764; 92765; 92766; 92767; 93004; 95059

== ENCOUNTER 2017-03-12 15:21 | Emergency (ER) | payer OTHER ==
--- NOTE | 2017-03-12 22:16 | ED NURSING NOTES ---
Clinical Report - Nurses [facility] [address] [place] [address] 03/12/2017 15:24 Patient: DORETHA LAKE TRIAGE Triage time 15:32 Mar 12 2017. Acuity: LEVEL 4. Chief Complaint: (Muscle spasms, pain, stuttering.). Alert. No acute distress. ERMA COMA SCORE: Erma Coma Scale: 15- eyes open spontaneously (4); best verbal response- oriented x 4 (5); best motor response- obeys commands (6). --15:41 Calvin Pedraza R.N. 15:32 03/12/17. BP: 115/65. HR: 120. RR: 20. O2 saturation: 95% on room air. Temp: 97.5 F. Pain level now: 08/18. --15:41 Calvin Pedraza R.N. Weight: 93.4 kg stated. Height/Length: 74 inches Per Patient. BMI: 26.5. --15:31 Calvin Pedraza R.N. Medications Gabapentin Oral 1600 mg, daily. Wellbutrin Oral (Tablet 100 mg) 1 tablet, daily. --15:33 Calvin Pedraza R.N. Benztropine. --15:46 Calvin Pedraza R.N. Ativan. --15:46 Calvin Pedraza R.N. Benadryl Oral. --15:47 Calvin Pedraza R.N. The following entry was struck by Calvin Pedraza R.N., 15:47 (03/12/17) Reason - wrong value. <<STRICKEN ENTRY-- Geodon Oral (Capsule 80 mg), 2x a day. --15:33 Calvin Pedraza R.N. --END STRIKE>>. Allergies Geodon. Moderate (Extrapyramidal ADR: Muscle Contractions) Vicodin.(vomiting) --15:33 Calvin Pedraza R.N. History Arrived by private vehicle. Historian: patient and family. Accompanied by family. Primary physician called the ED prior to patient's arrival (Sent by Dr. Sigala). Onset. (Thursday night). He has had weakness. Reports muscle aches. ( Sweating). Treatment SUPERVISOR COUNSELING AND GUIDANCE: None. SOCIAL HX: Light tobacco smoker (Pt chews tabacco). No alcohol use or drug use. No infectious disease exposure. ABUSE ASSESSMENT: Abuse assessment: The patient was asked "Do you feel safe in your home?". No report of abuse. SELF HARM ASSESSMENT: A self harm assessment was performed. The patient answered "no" to the question "Have you recently felt down, depressed, or hopeless?". FALL RISK ASSESSMENT: Fall risk assessment completed. No fall risk identified. NUTRITIONAL RISK ASSESSMENT: The nutritional risk assessment revealed no deficiencies. FUNCTIONAL ASSESSMENT: Functional assessment: no impairments noted. LEARNING NEEDS ASSESSMENT: The learning needs assessment revealed no barriers. SKIN INTEGRITY ASSESSMENT: Skin integrity risk assessment completed. No skin integrity risk identified. --15:41 Calvin Pedraza R.N. PROBLEMS: Hepatitis [Chronic]. Pancreatitis [Chronic]. --15:34 Calvin Pedraza R.N. Adverse Drug Reaction. Rhabdomyolysis. Substance Abuse. Abdominal Pain. Diarrhea. Vomiting. Dental Pain. Asthma. Back Pain. Anxiety Reaction. PTSD. --15:34 Calvin Pedraza R.N. ADDITIONAL SURGERIES: Eye surgery. Hand surgery. --15:34 Calvin Pedraza R.N. Interventions ID band on patient. To treatment room. --15:41 Calvin Pedraza R.N. PHYSICAL ASSESSMENT To room via wheelchair. GENERAL / NEURO / PSYCH: Alert. Oriented X 4. Appears in pain, anxious and in distress. HEENT: Pupils equal, round and reactive to light. No facial asymmetry noted. Mucous membranes are pink. RESPIRATORY: Mild respiratory distress. The patient can speak in full sentences. CVS: Capillary refill less than 2 seconds. Pulses within normal limits. GI / : Abdomen soft and nontender. SKIN: Skin intact. Skin is warm. Skin is diaphoretic. ( Pt is flushed). --15:42 Calvin Pedraza R.N. ( Pt has episodes of total body muscular contractions. During these episodes Pt is able to speak and breathe, Pt stutters intermittently, most severe during these episodes.). --15:50 Calvin Pedraza R.N. NURSING PROGRESS NOTES The plan of care for this patient has been created. Monitoring of patient in place. Patient gowned. Head of bed elevated. Reassurance given. Call light placed in reach. Side rails up x 2. Bed placed in lowest position. Patient ready for evaluation- ED physician notified. --15:42 Calvin Pedraza R.N. 15:43 03/12/2017 Site #1 started via IV in the left forearm with an 20g angiocath, with aseptic technique and good blood return; one attempt. Blood drawn: rainbow set. Labeled in the presence of the patient and sent to the lab. Saline lock flushed with saline. --15:43 Calvin Pedraza R.N. 15:44 03/12/2017 Started bag #1 1000 mL IV Fluids IV NS (Saline); bolus of 1000 mL wide open via site #1. Allergies verified and confirmed 5 rights. IV patency established. IV site checked: no pain, redness, or swelling. IV flushed thoroughly pre- and post-medication administration. Completed per protocol. --15:44 Calvin Pedraza R.N. 15:59 03/12/2017 Benztropine IVP 1 mg given over 1 minute(s) via site #1. Allergies verified, confirmed 5 rights and sedative warning given to the patient. IV patency established. IV site checked: no pain, redness, or swelling. IV flushed thoroughly pre- and post-medication administration. IVP given by RN. --16:00 Calvin Pedraza R.N. 16:02 03/12/17. BP: 126/81. HR: 102. RR: 16. O2 saturation: 96% on room air. Pain level now: 08/18. --16:04 Calvin Pedraza R.N. ( Pt is having generalized spasmodic episodes about every 5-10 minutes, lasting 30-45 seconds. Pt is able to talk and breathe, VSS, encouraged Pt to provide urine sample, girlfriend at bedside, monitoring.). --16:06 Calvin Pedraza R.N. Critical value relayed to ED by Alicia at 1713 PM. Critical value received by Gwen. Lactate level: 3.7. Critical value read back. Verified lab result and patient ID. Patient ID band checked for patient name, birthdate and medical record number: patient confirmed. ED physician notifed of critical value. Orders were not received. No action is required. --17:13 Gwen Barebr R.N. 17:03/12/2017 IV Fluids IV NS Discontinued: bag #1 infused. Total amount infused: 1000 mL. IV patency established. IV site checked: no pain, redness, or swelling. IV flushed thoroughly. --17:25 Calvin Pedraza R.N. 17:03/12/2017 Started bag #1 1000 mL IV Fluids IV NS (Saline); bolus of 1000 mL over 1 hour(s) via site #1. Allergies verified and confirmed 5 rights. IV patency established. IV site checked: no pain, redness, or swelling. IV flushed thoroughly pre- and post-medication administration. Completed per protocol. --17:26 Calvin Pedraza R.N. 17:03/12/2017 Benztropine IVP 1 mg given over 1 minute(s) via site #1. Allergies verified, confirmed 5 rights and sedative warning given to the patient and patient's roll panner. IV patency established. IV site checked: no pain, redness, or swelling. IV flushed thoroughly pre- and post-medication administration. IVP given by RN. --17:26 Calvin Pedraza R.N. 17:03/12/2017 Benztropine IVP Response: no adverse reaction symptoms have improved. --17:26 Calvin Pedraza R.N. ( Pt awake, alert, resting in room, VSS, states last dose of Cogentin helped, reports his spasmodic episodes are occurring about every 15 minutes, brief in duration.). --17:27 Calvin Pedraza R.N. 17:30 03/12/17. BP: 111/69. HR: 98. O2 saturation: 95% on room air. Pain level now: 05/18. --17:31 Calvin Pedraza R.N. <<STRICKEN ENTRY-- 18:25 03/12/17. BP: 106/68. HR: 73. RR: 16. O2 saturation: 100% on room air. Pain level now: 02/16. --18:28 Cook, Calvin, R.N. --END STRIKE>> Charted on wrong patient. --18:40 Calvin Pedraza R.N. <<STRICKEN ENTRY-- ( PA in to discuss recommendation of LP. then in to discuss LP, discussed risks and benefits of procedure, Pt denied procedure, stated she would prefer to "just wait it out" and see if her TOLEDO resolves. Spouse at bedside, VSS.). --18:30 Calvin Pedraza R.N. --END STRIKE>> Charted On Wrong Patient --18:37 Calvin Pedraza R.N. ( Pt has been resting comfortably, reports that his episodes are less frequent, Pt states he has had 1 "major one in the last hour." Pt does have some intermittent "twitches". VSS, Pt is asking for pain medicine at this time.). --18:35 Calvin Pedraza R.N. 18:31 03/12/17. BP: 135/71. HR: 94. RR: 16. O2 saturation: 96% on room air. Pain level now: 04/18. --18:35 Calvin Pedraza R.N. 18:30 03/12/2017 Benztropine IVP Response: no adverse reaction. --20:08 Calvin Pedraza R.N. 18:30 03/12/2017 IV Fluids IV NS Discontinued: bag #2 infused. Total amount infused: 1000 mL. IV patency established. IV site checked: no pain, redness, or swelling. IV flushed thoroughly. --21:17 Calvin Pedraza R.N. 19:50 03/12/2017 Morphine IVP 8 mg given over 1 minute(s) via site #1. Allergies verified, confirmed 5 rights and sedative warning given to the patient. IV patency established. IV site checked: no pain, redness, or swelling. IV flushed thoroughly pre- and post-medication administration. IVP given by RN. --19:50 Gwen Barber R.N. ( Pt resting in room, VSS, states morphine hasn't helped his pain. Pt reports he had an episode while staff was out of his room. Pt appears comfortable, in no acute distress, wctm.). --20:12 Calvin Pedraza R.N. 20:10 03/12/17. BP: 127/91. HR: 93. RR: 16. O2 saturation: 97% on room air. Pain level now: 03/18. --20:12 Calvin Pedraza R.N. Patient waiting for lab results. --20:16 Calvin Pedraza R.N. 21:46 03/12/17. BP: 119/79. HR: 74. RR: 16. O2 saturation: 95% on room air. Pain level now: 04/18. --21:49 Calvin Pedraza R.N. ( Pt resting comfortably, Pt reports last episode 30 minutes ago, reports some pain to his lower back, otherwise improved, VSS.). --21:49 Calvin Pedraza R.N. 21:55 03/12/2017 Dilaudid (HYDROmorphone HCl PF) IVP 1 mg given over 2 minute(s) via site #1. Allergies verified, confirmed 5 rights and sedative warning given to the patient. IV patency established. IV site checked: no pain, redness, or swelling. IV flushed thoroughly pre- and post-medication administration. IVP given by RN. --21:55 Calvin Pedraza R.N. 21:55 03/12/2017 Morphine IVP Response: no adverse reaction. --21:55 Calvin Pedraza R.N. 22:37 03/12/2017 Site #1 removed upon discharge. Bandage applied. --22:42 Calvin Pedraza R.N. 22:37 03/12/2017 Dilaudid IVP Response: no adverse reaction symptoms have improved. --22:42 Calvin Pedraza R.N. DISPOSITION / DISCHARGE 22:25 03/12/17. BP: 121/81. HR: 75. RR: 16. O2 saturation: 98% on room air. Temp: 98.1 F. Pain level now: 03/18. --22:26 Calvin Pedraza R.N. Departure time: 22:Mar 12 2017. Condition at departure: improved and stable. The goals identified in the patient's plan of care were met. No learning barriers present. Discharge instructions provided and reviewed with roll panner and the patient. Reviewed warnings (Pt instructed not to drive while taking Rx Cogentin d/t drowsiness warning.). Reviewed medication(s) side effects, precautions, dosing and course information. Prescription(s) given to the patient. Reviewed referral to a psychiatrist and primary care physician for followup. Patient and roll panner verbalized understanding. Written instructions provided in Greenlandic. The patient was discharged by the physician. He was discharged home and accompanied by roll panner. He left the Emergency Department ambulatory and via private vehicle. Hospital Librarian driving. ( Pt dc'd in stable condition, ambulatory, pain controlled, A/O x 4, verbalized understanding of DC POC. Pt's spasms and rigidity have grossly resolved, no extended periods of muscular rigidity noted for the past few hours, minimal twitches noted.). --22:42 Calvin Pedraza R.N. Locked/Released at 03/12/2017 22:43 by Calvin Pedraza R.N.
--- NOTE | 2017-03-12 22:16 | ED CLINICAL REPORT ---
Clinical Report - Physicians/Mid Levels [facility] [address] [place] [address] 03/12/2017 15:24 Patient: DORETHA LAKE Time Seen: 1531. Arrived- By private vehicle. Historian- patient. HISTORY OF PRESENT ILLNESS Chief Complaint: muscle spasms and cramps. This started yesterday, patient was last known well (yesterday) and is still present (unchanged). It was abrupt in onset and has been intermittent but is not gone now. (generalized body cramps). At its maximum deficit described as moderate. When seen in the E.D.,deficit described as moderate. No dizziness, altered mental status, seizure or blackouts. Usually is alert and oriented X3 and has normal mobility. (patient reports increasing his Geodon per his providers recommendations.). Similar symptoms previously: None. Recent medical care: The patient was seen recently in the emergency department and a clinic. REVIEW OF SYSTEMS All systems otherwise negative, except as recorded above. PAST HISTORY See nurses notes. Medications: Benadryl Oral. Ativan. Benztropine. Gabapentin Oral 1600 mg, daily. Wellbutrin Oral (Tablet 100 mg) 1 tablet, daily. Allergies: Geodon. Moderate (Extrapyramidal ADR: Muscle Contractions) Vicodin.(vomiting). SOCIAL HISTORY Never smoker. No alcohol use or drug use. No recent travel. Is a local resident. ADDITIONAL NOTES The nursing notes have been reviewed. PHYSICAL EXAM Vital Signs: 03/12/2017 15:32 BP: 115/65. HR: 120. RR: 20. O2 saturation: 95%. Temp: 97.5 F. Pain level now: 10/10. Blood pressure normal. Oxygen saturation normal. Appearance: Alert. No acute distress. Head: Head atraumatic. Eyes: Pupils equal, round and reactive to light. ENT: Normal ENT inspection. Airway intact. Pharynx normal. Neck: Normal inspection. Neck supple. No meningeal signs. (atient is moving his neck without any distress. Negative Kernig's sign and negative Brudzinski's.). CVS: Normal heart rate and rhythm. Heart sounds normal. Pulses normal. Respiratory: No respiratory distress. Breath sounds normal. Abdomen: Soft and nontender. No organomegaly. Skin: Skin warm and dry. Normal skin color. No rash. Normal skin turgor. Extremities: Extremities exhibit normal ROM. No lower extremity edema. Neuro: Alert. Oriented X 3. Mood/affect normal. Speech normal. Cranial nerves normal (as tested). No cerebellar findings. No motor deficit. No sensory deficit. Reflexes normal. (patient with occasional muscle spasms in the last approximately 30 seconds to a minute.). LABS, X-RAYS, AND EKG Laboratory Tests: UA-Culture if indicated: (DEAN: 03/12/2017 17:17) ( Mscvd 03/12/2017 17:50) Final results Test Result Flag Units (Reference) URINE COLOR YELLOW URINE APPEARANCE CLEAR URINE GLUCOSE NEGATIVE (NEGATIVE) URINE BILIRUBIN 1+ (NEGATIVE) URINE KETONE NEGATIVE (NEGATIVE) URINE SPECIFIC GRAVITY >= 1.030 (1.010-1.030) URINE PH 6.0 (5.0-8.0) URINE PROTEIN TRACE (NEGATIVE) URINE UROBILINOGEN 1.0 EU/dL (0.2-1.0) URINE NITRITE NEGATIVE (NEGATIVE) URINE BLOOD NEGATIVE (NEGATIVE) URINE LEUK ESTERASE NEGATIVE (NEGATIVE) URINE RBC 0-1 rbc/hpf (0-1) URINE WBC 1-3 wbc/hpf (0-1) URINE EPITHELIAL CELLS 1-3 EPI/hpf (0-5) URINE BACTERIA FEW (1+) (NONE SEEN) HYALINE CAST 10-15/LPF URINE COMMENT CULT NOT INDICATED URINE CULTURES ARE SET-UP BASED ON THE FOLLOWING CRITERIA:POSITIVE NITRITEPOSITIVE LEUKOCYTE ESTERASEGREATER THAN 10 WHITE BLOOD CELLSMODERATE (2+) OR GREATER BACTERIA CBC w Diff: (DEAN: 03/12/2017 15:45) ( MsgRcvd 03/12/2017 15:56) Final results Test Result Flag Units (Reference) WHITE BLOOD COUNT 6.3 K/uL (4.5-11.5) RED BLOOD COUNT 4.80 M/uL (4.50-5.90) HEMOGLOBIN 14.3 gm/dL (13.5-17.5) HEMATOCRIT 42.4 % (41.0-53.0) MEAN CELL VOLUME 88 fL (80-100) MEAN CORPUSCULAR HGB 30 pg (26-34) MEAN CORPUSCULAR HGB CONC 34 g/dL (31-37) RED CELL DISTRIBUTION WIDTH 12.3 % (11.6-14.8) PLATELET COUNT 158 K/uL (150-400) NEUTROPHIL % 43.0 L % (50-75) LYMPH % 42.3 H % (25-40) MONO % 9.9 % (3-14) EOSINOPHIL % 4.2 H % (0-4) BASOPHIL % 0.6 % (0-2) PT with INR: (DEAN: 03/12/2017 15:45) ( [facility] 03/12/2017 16:25) Final results Test Result Flag Units (Reference) INR 1.0 (0.8-1.2) Low Intensity Therapy: INR 1.5-2.0 PT range 18.5-23.1Mod.Intensity Therapy: INR 2.0-3.0 PT range 23.1-31.5High Intensity Therapy: INR 2.5-3.5 PT range 27.4-35.5High Intensity Therapy 2: INR 3.0-4.0 PT range 31.5-39.3 APTT 27 SECONDS (24-34) Lactate, Serum: (DEAN: 03/12/2017 19:30) ( [facility] 03/12/2017 20:04) Final results Test Result Flag Units (Reference) LACTIC ACID 1.9 mmol/L (0.4-2.0) CPK: (DEAN: 03/12/2017 16:40) ( [facility] 03/12/2017 17:58) Final results Test Result Flag Units (Reference) CPK 828 H U/L (24-260) %CKMB 8.4 H % (0.0-4.0) Urine Drug Screen: (DEAN: 03/12/2017 17:17) ( [facility] 03/12/2017 17:56) Final results Test Result Flag Units (Reference) AMPHETAMINE/METHAMPHETAMINE NEGATIVE (NEGATIVE) BARBITURATE NEGATIVE (NEGATIVE) BENZODIAZEPINE NEGATIVE (NEGATIVE) CANNABINOID NEGATIVE (NEGATIVE) COCAINE NEGATIVE (NEGATIVE) ECSTASY POSITIVE H (NEGATIVE) METHADONE NEGATIVE (NEGATIVE) OPIATE NEGATIVE (NEGATIVE) The urine drug screen is a qualitative screening test fordrug overdose and abuse. All screen results should beconsidered as presumptive.Drugs screened for are as follows:BenzodiazepinesCocaineAmphetamines/MetamphetaminesTHC (Tetrahydrocannabinol)OpiatesBarbituratesEcstasyMethadonePositive results are unconfirmed. For confirmation, notifythe lab for the specimen to be sent to the reference lab.All confirmations must be performed by a differentmethodology.The ingestion of natural herbal and plant productscontaining Ephedra/Ephedra metabolites can produce in urineone or more substances capable of cross reacting withamphetamine/methamphetamine immunoassays. These testsprovide a preliminary result only. A more specificalternative chemical method must be used to obtain aconfirmed analytical result. Lactate, Serum: (DEAN: 03/12/2017 15:45) ( MsgRcvd 03/12/2017 17:13) Final results Test Result Flag Units (Reference) LACTIC ACID 3.7 H mmol/L (0.4-2.0) CRITICAL RESULTS CALLEDCalled to EMILEE ALLEN, 03/12/17 1712Were 2 patient identifiers used? YWas the result read back? Y CMP: (DEAN: 03/12/2017 15:45) ( MsgRcvd 03/12/2017 16:50) Final results Test Result Flag Units (Reference) GLUCOSE 79 mg/dL (70-110) BUN 13 mg/dL (7-18) CREATININE 1.5 H mg/dL (0.6-1.3) Estimated GFR 54.29 mL/min Estimated GFR- >60 mL/min Note: Persistent reduction over 3 months in eGFR<60 mL/min/1.73 m2 defines CKD. Patients with eGFR values>=60 mL/min/1.73 m2 may also have CKD if evidence ofpersistent proteinuria. Additional information may be foundat www.kidney.org. SODIUM 144 mmol/L (136-145) POTASSIUM 4.1 mmol/L (3.5-5.1) CHLORIDE 106 mmol/L (98-107) CARBON DIOXIDE 20 L mmol/L (21-32) CALCIUM 9.0 mg/dL (8.5-10.1) TOTAL PROTEIN 8.2 g/dL (6.4-8.2) ALBUMIN 4.2 g/dL (3.3-5.0) BILIRUBIN, TOTAL 0.6 mg/dL (0.0-1.0) ALKALINE PHOSPHATASE 94 U/L (46-116) AST (SGOT) 48 H U/L (15-37) ALT (SGPT) 50 U/L (12-78) CPK 924 H U/L (24-260) THYROID STIMULATING HORMONE 4.893 H uIU/mL (0.34-3.74) CK-MB 9.6 H ng/mL (0.5-3.2) %CKMB 1.0 % (0.0-4.0) . PROGRESS AND PROCEDURES Course of Care: the patient is a pleasant 41-year-old male presenting for evaluation of muscle spasms. Patient was sent in by his provider in regards to possiblemeningitis. On examination, patient does not have any nuchal rigidity. Patient with negative Kernig's and negative Brudzinski's. At this time, feel the risks of lumbar puncture outweigh the benefits. Patient does have a condition which is likely extrapyramidal because of increasing Geodon medications. Patient will be treated with Cogentin. Patient be monitored closely. Patient is not significantly improved with the treatment here in the emergency Department we'll consider other options at this time. Laboratory studies have been drawn for a dilation of any metabolic disturbance or electrolyte abnormality was could've precipitated his symptoms here. Patient is otherwise agreeable to the treatment and plan. Patient's workup was remarkable for the findings above. Compared the patient's laboratory studies from today to yesterday's laboratory studies. Patient with increased CPK. Patient withmild rhabdomyolysis. We'll need to redraw the patient's CPK after fluids up and given for evaluation of worsening rhabdomyolysis. The patient does have worsening of CPK or worsening of his lactic acid, we'll need to admit the patient for IV hydration and monitoring. Symptoms have improved in regards to the patient's cramping. Likely symptoms are the result of the Geodon medication and extrapyramidal symptoms. Patient has required 2 doses of Cogentin but has significantly improved. Pain medication has been ordered for the patient's generalized muscle aches and cramps likely because of the rhabdomyolysis. The patient's workup was remarkable for the findings above. Lactic acid and CBC had significantly improved with hydration here in the emergency department. ecause of the patient's improved laboratory studies and improved symptoms here in the emergency department and no concern for meningitis at this time, feel patient is a stable outpatient candidate. Do not feel the patient requires admission to the hospital require further emergency department workup/evaluation. Had a discussion with the patient in regards to his symptoms here in the emergency department. Cautioned patient in regards to continue his Geodon. Patient states that he will no longer take this medication again. Discussed with the patient is workup here in the emergency department including diagnosis, home care, follow-up, and return precautions. All questions have been answered. The patient expressed understanding of these instructions and was agreeable to them. Disposition: Discharged. Condition: good. CLINICAL IMPRESSION Mild nontraumatic rhabdomyolysis acute extrapyramidal syndrome lactic acidosis, acute resolved. INSTRUCTIONS Warnings: Further evaluation is necessary in order to assess the possibility of serious illness. It is very important to follow up with a physician. GENERAL WARNINGS: Return or contact your physician immediately if your condition worsens or changes unexpectedly, if not improving as expected, or if other problems arise. Specifically return if pain, vomiting, bleeding, breathing difficulty or fever. Your Current Medications: CONTINUE TAKING THE FOLLOWING MEDICATIONS: Ativan*. Benadryl Oral. Benztropine*. Gabapentin Oral : 1600 mg daily. Wellbutrin Oral : Tablet 100 mg, 1 tablet daily. Prescription Medications: Cogentin 1 mg: take 1 tablet orally every 8 hours. Dispense thirty (30). No refills. Substitution is permissible. (as needed for muscle spasms or twitching) Follow-up: Return to the emergency department as needed. Follow up with a psychiatrist in three days. Reason for referral: recheck today's concerns. Summary of care provided to patient via paper. Follow up with your doctor in three days. Reason for referral: recheck today's concerns. Summary of care provided to patient via paper. Screening today revealed the patient's blood pressure to be in the normal range. The patient should follow up with a primary care provider for blood pressure management. Understanding of the discharge instructions verbalized by patient. (Electronically signed by Lee Morillo Dr. 03/16/2017 17:07)
--- NOTE | 2017-03-12 22:17 | ED ORDER SUMMARY ---
..... Patient: DORETHA LAKE OrderSheet [facility] VisitID: [id number] [address] [place] [address] 41y, M Registration Date/Time: 03/12/2017 ORDER SHEET Weight: 93.4 kg (stated) Allergies: Geodon, Vicodin GENERAL ORDERS: CBC w Diff Urgent (15:36 03/12/2017 Carlotta Chavis) (Ack 15:38 Fercho) (15:43 MCook R.N.) CMP Urgent (15:36 03/12/2017 Carlotta Chavis) (Ack 15:38 Fercho) (15:43 MCook R.N.) UA-Culture if indicated Urgent (15:36 03/12/2017 Carlotta Chavis) (Ack 15:38 Fercho) (17:26 MCook R.N.) PT with INR Urgent (15:36 03/12/2017 Carlotta Chavis) (Ack 15:38 Fercho) (15:43 MCook R.N.) Urine Drug Screen Urgent (15:36 03/12/2017 Carlotta Chavis) (Ack 15:38 Fercho) (17:26 MCook R.N.) Lactate, Serum Urgent (15:36 03/12/2017 Carlotta Chavis) (Ack 15:38 Fercho) (15:43 MCook R.N.) PTT Urgent (15:36 03/12/2017 Carlotta Chavis) (Ack 15:38 Fercho) (15:43 MCook R.N.) CPK Urgent (15:36 03/12/2017 Carlotta Chavis) (Ack 15:38 Fercho) (15:43 MCook R.N.) TSH Urgent (15:36 03/12/2017 Carlotta Chavis) (Ack 15:38 Fercho) (15:43 MCook R.N.) Pulse oximeter (15:36 03/12/2017 Carlotta Chavis) (15:43 MCook R.N.) CPK Urgent (16:54 03/12/2017 Carlotta Chavis) (Ack 16:56 IJurca ER Tech1) (17:36 Osmani R.N.) Lactate, Serum Urgent (19:20 03/12/2017 Carlotta Chavis) (Ack 19:22 CHagerty ER Clinical Cytopathologist) (21:55 Violettek R.N.) MEDICATION ORDERS: - (Benztropin 1 mg IV once now) (15:52 03/12/2017 Carlotta Chavis) (16:00 Osmani PradoNMariposa) - (benztropine 1 mg IV once now) (17:06 03/12/2017 Carlotta Chavis) (17:26 Osmani R.N.) IV FLUIDS: IV NS : initial bolus 1000 mL (1000 mL/hr), then none - for X1 (NOW) (15:36 03/12/2017 Carlotta Chavis) (15:44 Osmani R.N.) IV NS : initial bolus 1000 mL (1000 mL/hr), then none - for X1 (NOW) (16:54 03/12/2017 Carlotta Chavis) (17:26 Osmani R.N.) Morphine IV 8 mg (HIGH ALERT MEDICATION, NOW) (19:28 03/12/2017 Carlotta Chavis) (19:50 Luma R.N.) tolerates per patient Dilaudid IV 1 mg (HIGH ALERT MEDICATION, NOW) (21:51 03/12/2017 Carlotta Chavis) (21:55 Osmani R.N.) ORDER SHEET NOTES: [Electronically signed by Calvin Pedraza R.N. (22:43 03/12/2017)] [Electronically signed by Lee Morillo Dr. (17:07 03/16/2017)] [Electronically locked/signed by Calvin Pedraza R.N. (22:43 03/12/2017)]
--- NOTE | 2017-03-12 22:17 | ED ORDER SUMMARY ---
..... Patient: DORETHA LAKE OrderSheet [facility] VisitID: [id number] [address] [place] [address] 41y, M Registration Date/Time: 03/12/2017 ORDER SHEET Weight: 93.4 kg (stated) Allergies: Geodon, Vicodin GENERAL ORDERS: CBC w Diff Urgent (15:36 03/12/2017 Carlotta Chavis) (Ack 15:38 Fercho) (15:43 MCook R.N.) CMP Urgent (15:36 03/12/2017 Carlotta Chavis) (Ack 15:38 Fercho) (15:43 MCook R.N.) UA-Culture if indicated Urgent (15:36 03/12/2017 Carlotta Chavis) (Ack 15:38 Fercho) (17:26 MCook R.N.) PT with INR Urgent (15:36 03/12/2017 Carlotta Chavis) (Ack 15:38 Fercho) (15:43 MCook R.N.) Urine Drug Screen Urgent (15:36 03/12/2017 Carlotta Chavis) (Ack 15:38 Fercho) (17:26 MCook R.N.) Lactate, Serum Urgent (15:36 03/12/2017 Carlotta Chavis) (Ack 15:38 Fercho) (15:43 MCook R.N.) PTT Urgent (15:36 03/12/2017 Carlotta Chavis) (Ack 15:38 Fercho) (15:43 MCook R.N.) CPK Urgent (15:36 03/12/2017 Carlotta Chavis) (Ack 15:38 Fercho) (15:43 MCook R.N.) TSH Urgent (15:36 03/12/2017 Carlotta Chavis) (Ack 15:38 Fercho) (15:43 MCook R.N.) Pulse oximeter (15:36 03/12/2017 Carlotta Chavis) (15:43 MCook R.N.) CPK Urgent (16:54 03/12/2017 Carlotta Chavis) (Ack 16:56 IJurca ER Tech1) (17:36 Osmani R.N.) Lactate, Serum Urgent (19:20 03/12/2017 Carlotta Chavis) (Ack 19:22 CHagerty ER Moto Mix Operator) (21:55 Violettek R.N.) MEDICATION ORDERS: - (Benztropin 1 mg IV once now) (15:52 03/12/2017 Carlotta Chavis) (16:00 Osmani PradoNMariposa) - (benztropine 1 mg IV once now) (17:06 03/12/2017 Carlotta Chavis) (17:26 Osmani R.N.) IV FLUIDS: IV NS : initial bolus 1000 mL (1000 mL/hr), then none - for X1 (NOW) (15:36 03/12/2017 Carlotta Chavis) (15:44 Osmani R.N.) IV NS : initial bolus 1000 mL (1000 mL/hr), then none - for X1 (NOW) (16:54 03/12/2017 Carlotta Chavis) (17:26 Osmani R.N.) Morphine IV 8 mg (HIGH ALERT MEDICATION, NOW) (19:28 03/12/2017 Carlotta Chavis) (19:50 Luma R.N.) tolerates per patient Dilaudid IV 1 mg (HIGH ALERT MEDICATION, NOW) (21:51 03/12/2017 Carlotta Chavis) (21:55 Osmani R.N.) ORDER SHEET NOTES: [Electronically signed by Calvin Pedraza R.N. (22:43 03/12/2017)] [Electronically signed by Lee Morillo Dr. (17:07 03/16/2017)] [Electronically locked/signed by Calvin Pedraza R.N. (22:43 03/12/2017)]
--- NOTE | 2017-03-16 17:07 | ED MAR SUMMARY ---
..... Medication Administration Record [facility] [address] [place] [address] Patient: DORETHA LAKE Visit ID: [id number] 41y, M Weight: 93.4 kg Height/Length: 74 in BMI: 26.5 ALLERGIES: Geodon, Vicodin Start 15:44 03/12/2017 Calvin Pedraza R.N., Stop 17:25 03/12/2017 Calvin Pedraza R.N. Medication Administered: IV NS (SALINE), Dose: IV Fluids, Bolus: 1000 mL wide open, Dispensed: 1000 mL bag, Site: #1 left forearm. Medication Ordered: IV NS : initial bolus 1000 mL (1000 mL/hr), then none - for X1 (NOW). Given 15:59 03/12/2017 Calvin Pedraza R.N. Medication Administered: BENZTROPINE [IVP], Dose: 1 mg IVP over 1 minute(s), Site: #1 left forearm. Medication Ordered: - (Benztropin 1 mg IV once now). Start 17:26 03/12/2017 Calvin Pedraza R.N., Stop 18:30 03/12/2017 Calvin Pedraza R.N. Medication Administered: IV NS (SALINE), Dose: IV Fluids, Bolus: 1000 mL over 1 hour(s), Dispensed: 1000 mL bag, Site: #1 left forearm. Medication Ordered: IV NS : initial bolus 1000 mL (1000 mL/hr), then none - for X1 (NOW). Given 17:26 03/12/2017 Calvin Pedraza R.N. Medication Administered: BENZTROPINE [IVP], Dose: 1 mg IVP over 1 minute(s), Site: #1 left forearm. Medication Ordered: - (benztropine 1 mg IV once now). Given 19:50 03/12/2017 Gwen Barber R.N. Medication Administered: MORPHINE [IVP], Dose: 8 mg IVP over 1 minute(s), Site: #1 left forearm. Medication Ordered: Morphine IV 8 mg (HIGH ALERT MEDICATION, NOW). Given 21:55 03/12/2017 Calvin Pedraza R.N. Medication Administered: DILAUDID [IVP] (HYDROMORPHONE HCL PF), Dose: 1 mg IVP over 2 minute(s), Site: #1 left forearm. Medication Ordered: Dilaudid IV 1 mg (HIGH ALERT MEDICATION, NOW).
--- NOTE | 2017-03-16 17:07 | ED MED RECONCILIATION SUMMARY ---
Patient: DORETHA LAKE Medication Reconciliation Report [facility] VisitID: [id number] [address] [place] [address] 41y, M Registration Date/Time: 03/12/2017 Weight: 93.4 kg Height/Length: 74 in. BMI: 26.5 ALLERGIES: Geodon, Vicodin The patient's Home Medications are listed below: CONTINUE TAKING THE FOLLOWING MEDICATIONS: Ativan Benadryl Oral Benztropine Gabapentin Oral 1600 mg, daily Wellbutrin Oral (100 mg) 1 tablet, daily The source(s) of the original Home Medication information: Not obtained. The following Medications were given to the patient in the Emergency Department: IV NS IV Fluids bolus 1000 mL wide open, administered: 03/12/2017 3:44:00 PM Benztropine [IVP] IVP 1 mg, administered: 03/12/2017 3:59:00 PM IV NS IV Fluids bolus 1000 mL over 1 hour(s), administered: 03/12/2017 5:26:00 PM Benztropine [IVP] IVP 1 mg, administered: 03/12/2017 5:26:00 PM Morphine [IVP] IVP 8 mg, administered: 03/12/2017 7:50:00 PM Dilaudid [IVP] IVP 1 mg, administered: 03/12/2017 9:55:00 PM The following Medications were prescribed to the patient: Cogentin 1 mg: take 1 tablet orally every 8 hours. Dispense thirty (30). No refills. Substitution is permissible.(as needed for muscle spasms or twitching) -- Lee Morillo Dr.
--- NOTE | 2017-03-16 17:07 | ED DISCHARGE INSTRUCTIONS ---
Patient: DORETHA LAKE General Instructions [facility] VisitID: [id number] [place] [address] 41y, M Registration Date/Time: 03/12/2017 Mild nontraumatic rhabdomyolysis acute extrapyramidal syndrome lactic acidosis, acute resolved. INSTRUCTIONS Warnings: Further evaluation is necessary in order to assess the possibility of serious illness. It is very important to follow up with a physician. GENERAL WARNINGS: Return or contact your physician immediately if your condition worsens or changes unexpectedly, if not improving as expected, or if other problems arise. Specifically return if pain, vomiting, bleeding, breathing difficulty or fever. Your Current Medications: CONTINUE TAKING THE FOLLOWING MEDICATIONS: Ativan*. Benadryl Oral. Benztropine*. Gabapentin Oral : 1600 mg daily. Wellbutrin Oral : Tablet 100 mg, 1 tablet daily. Prescription Medications: Cogentin 1 mg: take 1 tablet orally every 8 hours. Dispense thirty (30). No refills. Substitution is permissible. (as needed for muscle spasms or twitching) Follow-up: Return to the emergency department as needed. Follow up with a psychiatrist in three days. Reason for referral: recheck today's concerns. Summary of care provided to patient via paper. Follow up with your doctor in three days. Reason for referral: recheck today's concerns. Summary of care provided to patient via paper. Screening today revealed the patient's blood pressure to be in the normal range. The patient should follow up with a primary care provider for blood pressure management. Understanding of the discharge instructions verbalized by patient. ADDITIONAL INFORMATION Rhabdomyolysis Rhabdomyolysis (RM) is the breakdown of muscle tissue. When this occurs there is a release of toxic substances into the blood stream. The most common cause for this condition is injury to the muscle from trauma. The trauma may be due to a blunt injury (car and bike accidents, falls), electrical shock or medel. Lying in one position for a long time (for example, unconscious from a drug or alcohol overdose), strenuous exertion (such as running a marathon), seizures and use of certain prescribed and recreational drugs can also cause RM. Severe RM can be fatal. It can cause fatal changes in body function including: Kidney failure Abnormalheart rhythm that can be fatal Excess bleeding due to changes in the bloods ability to form a clot Severe RM is a medical emergency and is treated in the hospital with large amounts of IV fluids to flush the toxins out of the body. Mild cases of RM may be treated in the emergency department and followed closely with a repeat exam and blood tests the next day. Home Care Rest for the next 24 hours. Avoid any strenuous activity. Drink extra fluids to stay well hydrated and to continue flushing toxins out of your system. Unless told otherwise, drink 3 quarts of clear fluids over the next 24 hours. You may use acetaminophen (Tylenol) or ibuprofen (Motrin, Advil) to control pain, unless another medicine was prescribed. [NOTE: If you have chronic liver or kidney disease or ever had a stomach ulcer or GI bleeding, talk with your doctor before using these medicines.] Follow Up with this facility, your doctor or as advised by our staff. Get Prompt Medical Attention if any of the following occur: Palpitations (rapid or irregular heartbeat) Dizziness, weakness or fainting Tea- or cola-colored urine or decreased urination Swelling, pain or numbness in the arm or leg muscles You have been given the following additional information: Rhabdomyolysis (Electronically signed by Lee Morillo Dr. 03/16/2017 17:07)
--- NOTE | 2017-03-16 17:07 | ED MAR SUMMARY ---
..... Medication Administration Record [facility] [address] [place] [address] Patient: DORETHA LAKE Visit ID: [id number] 41y, M Weight: 93.4 kg Height/Length: 74 in BMI: 26.5 ALLERGIES: Geodon, Vicodin Start 15:44 03/12/2017 Calvin Pedraza R.N., Stop 17:25 03/12/2017 Calvin Pedraza R.N. Medication Administered: IV NS (SALINE), Dose: IV Fluids, Bolus: 1000 mL wide open, Dispensed: 1000 mL bag, Site: #1 left forearm. Medication Ordered: IV NS : initial bolus 1000 mL (1000 mL/hr), then none - for X1 (NOW). Given 15:59 03/12/2017 Calvin Pedraza R.N. Medication Administered: BENZTROPINE [IVP], Dose: 1 mg IVP over 1 minute(s), Site: #1 left forearm. Medication Ordered: - (Benztropin 1 mg IV once now). Start 17:26 03/12/2017 Calvin Pedraza R.N., Stop 18:30 03/12/2017 Calvin Pedraza R.N. Medication Administered: IV NS (SALINE), Dose: IV Fluids, Bolus: 1000 mL over 1 hour(s), Dispensed: 1000 mL bag, Site: #1 left forearm. Medication Ordered: IV NS : initial bolus 1000 mL (1000 mL/hr), then none - for X1 (NOW). Given 17:26 03/12/2017 Calvin Pedraza R.N. Medication Administered: BENZTROPINE [IVP], Dose: 1 mg IVP over 1 minute(s), Site: #1 left forearm. Medication Ordered: - (benztropine 1 mg IV once now). Given 19:50 03/12/2017 Gwen Barber R.N. Medication Administered: MORPHINE [IVP], Dose: 8 mg IVP over 1 minute(s), Site: #1 left forearm. Medication Ordered: Morphine IV 8 mg (HIGH ALERT MEDICATION, NOW). Given 21:55 03/12/2017 Calvin Pedraza R.N. Medication Administered: DILAUDID [IVP] (HYDROMORPHONE HCL PF), Dose: 1 mg IVP over 2 minute(s), Site: #1 left forearm. Medication Ordered: Dilaudid IV 1 mg (HIGH ALERT MEDICATION, NOW).
--- NOTE | 2017-03-16 17:07 | ED MED RECONCILIATION SUMMARY ---
Patient: DORETHA LAKE Medication Reconciliation Report [facility] VisitID: [id number] [address] [place] [address] 41y, M Registration Date/Time: 03/12/2017 Weight: 93.4 kg Height/Length: 74 in. BMI: 26.5 ALLERGIES: Geodon, Vicodin The patient's Home Medications are listed below: CONTINUE TAKING THE FOLLOWING MEDICATIONS: Ativan Benadryl Oral Benztropine Gabapentin Oral 1600 mg, daily Wellbutrin Oral (100 mg) 1 tablet, daily The source(s) of the original Home Medication information: Not obtained. The following Medications were given to the patient in the Emergency Department: IV NS IV Fluids bolus 1000 mL wide open, administered: 03/12/2017 3:44:00 PM Benztropine [IVP] IVP 1 mg, administered: 03/12/2017 3:59:00 PM IV NS IV Fluids bolus 1000 mL over 1 hour(s), administered: 03/12/2017 5:26:00 PM Benztropine [IVP] IVP 1 mg, administered: 03/12/2017 5:26:00 PM Morphine [IVP] IVP 8 mg, administered: 03/12/2017 7:50:00 PM Dilaudid [IVP] IVP 1 mg, administered: 03/12/2017 9:55:00 PM The following Medications were prescribed to the patient: Cogentin 1 mg: take 1 tablet orally every 8 hours. Dispense thirty (30). No refills. Substitution is permissible.(as needed for muscle spasms or twitching) -- Lee Morillo Dr.
== END 2017-03-12 22:36 | disposition home or self-care (01) ==
LOC: ED SRH 15:21
DX: M62.82 Rhabdomyolysis (principal); G25.9 Extrapyramidal and movement disorder, unspecified; E87.2 Acidosis; F17.210 Nicotine dependence, cigarettes, uncomplicated; Z88.5 Allergy status to narcotic agent; Z79.899 Other long term (current) drug therapy
CPT/HCPCS: 90004; 90074; 90100; 90617; 92031; 92610; 92760; 92761; 92762; 92763; 92764; 92765; 92766; 92767; 93140; 94001; 94060; 95059